=== PATIENT | male | born 1960 | race Caucasian/White ===

== ENCOUNTER 2020-11-04 07:59 | Outpatient (CLI) | payer OTHER, SELFPAY ==
--- NOTE | 2020-11-04 08:11 | XR_ITS ---
WS: [id number] LEFT SHOULDER: 3 VIEW(S) TECHNIQUE: Internal and external rotation with Y view. HISTORY: CHRONIC PAIN IN LEFT SHOULDER COMPARISON: None available. No fracture or dislocation or soft tissue abnormality. Mild AC joint narrowing and hypertrophy. Very mild irregularity along the surface of the glenoid. XR/XR shoulder LT min 2V* [id number] IMPRESSION: Mild AC joint and glenohumeral joint osteoarthritis.
--- NOTE | 2020-11-04 08:11 | XR_ITS ---
WS: [id number] Cervical spine, 5 views with obliques, 11/04/2020 Clinical Data: CERVICAL DISC DEGENERATION,CERVICOTHORACIC REGION Comparison: None. Findings: No compression fractures are seen. There is degenerative disc narrowing at C5-C6 and C6-C7. There is anterior osteophyte formation at C5, C6 and C7. There is neuroforaminal narrowing at C5-C6 and C6-C7 bilaterally. There is no prevertebral soft tissue swelling. The odontoid is unremarkable. T he soft tissues of the neck and the lung apices are normal. XR/XR cervical spine 4-5V [id number] Impression: 1. Degenerative disc narrowing at C5-C6 and C6-C7. 2. Anterior osteophyte formation at C5, C6 and C7. 3. Neural foraminal narrowing at C5-C6 and C6-C7.
== END 2020-11-04 08:00 | disposition home or self-care (01) ==
LOC: RAD 08:06
PROVIDERS: PCP Family Medicine; Visit Provider Nurse Practitioner
DX: M50.33 Other cervical disc degeneration, cervicothoracic region (principal); M25.512 Pain in left shoulder; R20.2 Paresthesia of skin; M89.411 Other hypertrophic osteoarthropathy, right shoulder; M19.012 Primary osteoarthritis, left shoulder; M25.78 Osteophyte, vertebrae
CPT/HCPCS: 72050; 73030

== ENCOUNTER → 2020-12-05 08:11 | Outpatient (BNVA) | payer OTHER, SELFPAY | PROVIDERS: PCP Nurse Practitioner; Referring Provider Nurse Practitioner; Visit Provider Anesthesiology Pain Medicine | DX: G89.29 Other chronic pain (principal); M54.12 Radiculopathy, cervical region; M50.90 Cervical disc disorder, unspecified, unspecified cervical region; Z87.891 Personal history of nicotine dependence | CPT/HCPCS: 99204 ==

== ENCOUNTER 2020-12-30 11:17 | Outpatient (CLI) | payer OTHER, SELFPAY ==
--- NOTE | 2020-12-30 11:45 | MR_ITS ---
WS: [id number] MRI CERVICAL SPINE NONCONTRAST HISTORY: M54.12 - Radiculopathy, cervical region COMPARISON: None available. Technique: Multiplanar, multisequence noncontrast imaging of the cervical spine. Normal cervical alignment. Less than 2 mm retrolisthesis of C3. Disc bulging and small osteophytes C3 -4 to C6-7.. Mild disc space narrowing and disc desiccation, most significant at C5-6 and C6-7. Signal within the cervical cord is normal. Visualized posterior fossa is unremarkable. Craniocervical junction, C1 and C2 relationship, odontoid process and soft tissues are normal. C2-C3: Normal. C3-C4: Mild annular disc bulging and osteophytic ridging. Near osteophyte contact on the ventral thec al sac. Mild central and bilateral foraminal stenosis predominantly due to osteophyte disease. Only m ild facet joint arthritis. C4-C5: Mild annular disc bulging and osteophytic ridging. Mild central stenosis and bilateral foramin al stenosis. Slightly greater narrowing on the RIGHT. Mild/moderate bilateral facet joint arthritis. C5-C6: Diffuse moderate annular disc bulging and osteophytic ridging. Near complete effacement of CSF . Moderate central and RIGHT foraminal stenosis. Mild LEFT foraminal stenosis. Larger disc osteophyte extends into the RIGHT foramen causing the more significant foraminal stenosis. Moderate bilateral f acet joint arthritis. C6-C7: Diffuse annular disc bulging and osteophytic ridging. Moderate bilateral foraminal stenosis an d mild central stenosis. Mild bilateral facet joint arthritis. C7-T1: Small central disc protrusion. No stenosis. Paraspinal soft tissue are normal. MR/MR cervical spin wo con* [id number] IMPRESSION: 1. Multilevel facet joint arthritis with disc and osteophyte disease. Most sig nificant facet arthritis at C4-5 and C5-6. 2. Moderate bilateral foraminal stenosis at C6-7 and mild central stenosis due to disc osteophyte disease. 3. Moderate central and RIGHT foraminal stenosis at C5-6 due to disc and osteo phyte disease. 4. Mild central and bilateral foraminal stenosis at C3-4 and C4-5.
== END 2020-12-30 11:18 | disposition home or self-care (01) ==
PROVIDERS: PCP Nurse Practitioner; Visit Provider Anesthesiology Pain Medicine
DX: M54.12 Radiculopathy, cervical region (principal); M48.02 Spinal stenosis, cervical region; M25.78 Osteophyte, vertebrae
CPT/HCPCS: 72141

== ENCOUNTER → 2021-01-06 11:04 | Outpatient (BNVA) | payer OTHER, SELFPAY | PROVIDERS: PCP Nurse Practitioner; Visit Provider Anesthesiology Pain Medicine | DX: M54.12 Radiculopathy, cervical region (principal); M47.812 Spondylosis without myelopathy or radiculopathy, cervical region; M50.90 Cervical disc disorder, unspecified, unspecified cervical region; M79.602 Pain in left arm; M48.02 Spinal stenosis, cervical region | CPT/HCPCS: 99214 ==

== ENCOUNTER 2021-12-27 08:41 | Outpatient (CLI) | payer OTHER, SELFPAY ==
--- NOTE | 2021-12-27 08:58 | XR_ITS ---
WS: [id number] Thoracic spine, AP and lateral views, 12/27/2021 Clinical Data: PAIN IN THORACIC SPINE Comparison: None. Findings: No compression fractures are seen. The disc heights are normal. Osteoarthritic spurring of all the vertebral bodies is seen. The paravertebral regions are normal. Th ere is a minimal dextroscoliosis of the upper thoracic spine. XR/XR thoracic spine 2V [id number] Impression: Moderate osteoarthritis and a mild dextroscoliosis of the thoracic spine.
== END 2021-12-27 08:42 | disposition home or self-care (01) ==
PROVIDERS: PCP Nurse Practitioner; Visit Provider Nurse Practitioner Family
DX: M54.6 Pain in thoracic spine (principal); M47.814 Spondylosis without myelopathy or radiculopathy, thoracic region; M41.84 Other forms of scoliosis, thoracic region
CPT/HCPCS: 72070

== ENCOUNTER → 2023-09-17 13:52 | Outpatient (BNVA) | payer MEDICARE, SELFPAY | PROVIDERS: PCP Nurse Practitioner; Visit Provider Surgery | DX: K46.9 Unspecified abdominal hernia without obstruction or gangrene (principal) | CPT/HCPCS: 99204 ==

== ENCOUNTER 2023-10-07 05:49 | Day surgery (SDC) | payer MEDICARE, SELFPAY ==
[2023-10-07] VITALS (12 sets, daily range): BP systolic 142–184; BP diastolic 99–121; PULSE 76–90; RESP 8–20; TEMP 36.5–37; O2SAT 90–99
--- NOTE | 2023-10-07 06:12 | W.PM.OPSUD ---
Surgery/Procedure H&P Update DATE OF PROCEDURE: October 07, 2023 DATE H&P PERFORMED: 09/17/23 H&P UPDATE INFORMATION: I have reviewed H&P completed within last 30 days, I have examined patient prior to procedure, No changes to prior documentation and H&P is in [facility] on date indicated PLANNED PROCEDURE: Operation Date: 10/07/23 07:00 Proposed Procedures p Laparoscopic Inguinal Hernia Repair w/Mesh [id number], K46.9(Right) - Jesus Tyler MD
[2023-10-07] MEDS: sodium chloride 0.9% 1,000 ML 30 ML IV (06:39)
--- NOTE | 2023-10-07 06:44 | P.ANESASSM_ITS ---
Pre-Anesthetic Assessment Height/Weight: Height 1.91 m Weight 95.254 kg Temp Pulse Resp BP Pulse Ox O2 Del Method 97.7 F 84 18 142/101 96 Room Air 10/07/23 06:08 10/07/23 06:08 10/07/23 06:08 10/07/23 06:08 10/07/23 06:08 10/07/23 06:08 Operation Date: 10/07/23 07:00 Proposed Procedures p Laparoscopic Inguinal Hernia Repair w/Mesh 85015, K46.9(Right) - Jesus Tyler MD Last intake: Intake Last Liquid Date 10/06/23 Last Liquid Time 21:30 Last Solid Date 10/06/23 Last Solid Time 20:00 Social No tobacco Exam alert, oriented x 3, clear to auscultation bilaterally and regular rate & rhythm Airway Submandibular: within normal limits Cervical ROM: within normal limits Mallampati: Class I Pulmonary None reported CV/HEM Coronary Artery Disease GI None reported Anesthetic Plan ASA status: 2 Anesthesia: General Medications/Allergies Home Medications Medication Instructions Recorded Confirmed Last Taken Type amlodipine 5 mg tablet 5 mg PO DAILY 08/03/19 10/07/23 10/07/23 History meloxicam 15 mg tablet 15 mg PO DAILY 08/03/19 10/04/23 10/04/23 History cyclobenzaprine 5 mg tablet 5 mg PO TID PRN muscle spasm #90 01/09/21 10/07/23 10/07/23 Rx tabs tramadol 50 mg tablet 50 mg PO Q6H PRN Pain 01/10/22 10/07/23 Unknown History ezetimibe 10 mg tablet 10 mg PO ONCE 09/17/23 10/07/23 10/06/23 History losartan 50 mg tablet 50 mg PO ONCE 09/17/23 10/07/23 10/06/23 History acetaminophen 650 mg 650 mg PO Q12H 10/04/23 10/07/23 10/07/23 History tablet,extended release multivitamin 1 tab PO DAILY 10/04/23 10/07/23 10/06/23 History Allergies Allergy/AdvReac Type Severity Reaction Status Date / Time Hagqrmj-FOA-BzE Reductase Allergy Unknown Unknown Verified 10/04/23 12:15 Inhibitor [Idrbgwk-Rxc-Xjd Reductase Inhibitor] lisinopril Allergy Cough Verified 09/17/23 14:06 Current Medications Generic Name Dose Route Start Last Admin Trade Name Freq PRN Reason Stop Dose Admin Sodium Chloride 1,000 mls @ 30 mls/hr 10/07/23 06:00 10/07/23 06:39 Sodium Chloride 0.9% IV 10/08/23 05:59 30 mls/hr .Q24H JAKE Administration PFSH Anesthesia Medical History ASHD (arteriosclerotic heart disease) HTN (hypertension) Hyperlipidemia Surgical History S/P PTCA (percutaneous transluminal coronary angioplasty) Family History Father Cancer CAD (coronary artery disease) Sister Hypertension Social History Smoking and tobacco/nicotine status: former use of tobacco/nicotine Household members: spouse Marital status: service: Yes branch: [employer] Data Anesthesia Cardiac Studies: No Data to Display
[2023-10-07] MEDS: ceFAZolin 2,000 MG in sodium chloride 0.9% (plus) 50 ML 100 MG IV (07:01)
[2023-10-07] MEDS: lidocaine-epi 1% PF 1:200,000 30 mL SDV INJECTION (07:34)
[2023-10-07] MEDS: BUPivacaine 0.25% INJ 30 mL INJECTION (07:34)
--- NOTE | 2023-10-07 08:57 | P.OP_ITS ---
Operative Report Date of procedure: October 07, 2023 Pre-op diagnosis: Right inguinal hernia Post-op diagnosis: Indirect right inguinal hernia Post-op findings: There was a large indirect right inguinal hernia, significant scarring of the sac to the cord structures. Procedure done: Laparoscopic repair of right inguinal hernia with mesh Implants: Extra-large Bard 3D max mesh Specimens removed/disposition: None Surgeon: Jesus Tyler MD Intelligence Manager: RAYMOND OR Staff Estimated blood loss: 5 Complications: none Brief History: 63-year-old male who presents to my office with a right inguinal hernia. After discussion of all risk and benefits as documented in my preop note we decided to proceed with a laparoscopic possible open right inguinal hernia repair with mesh Procedure: Patient was brought into the OR, he was placed in a supine position. General anesthesia was given. A Hoang catheter was placed. the abdomen was prepped and draped in the usual sterile fashion. A timeout was conducted. An infraumbilical incision measuring 1.5 cm was made and deepened to the anterior abdominal wall fascia with electrocautery. The right rectus sheath was then opened and the muscle retracted laterally exposing the retrorectus space. A dissecting balloon was then inserted into the retrorectus space and carefully advanced to the level of the pubic bone. Under direct visualization the balloon was inflated with very good expansion of the preperitoneal space. I then remove the balloon and replace it with a 12 mm balloon trocar. Additional 5 mm trocars were then placed under direct visualization in the suprapubic and infraumbilical position. I then proceeded to complete the dissection of the preperitoneal space by exposing the pubic arch and the symphysis pubis, I evaluated the femoral space and noted that no evidence of hernia was seen at this place. I then proceeded with lateral dissection of the space of borgoss, once lateral di ssection was completed I proceeded to dissect the cord structures and hernia sac. A large hernia sac was noted and was adhered to the cord structures. With careful blunt dissection I was able to release the cord structures from the sac and eventually I was able to reduce the whole sac into the preperitoneal space. Critical view of safety of the myopectineal orifice was achieved. Hemostasis was verified. I then placed the extra-large 3D max mesh on the preperitoneal space and fixated to the pubic bone at the level of the symphysis. The preperitoneal space was desufflated reinsufflated to verify adequate mesh position. After position was verified the space was then desufflated under direct visualization all trocars were removed. The fascia of the anterior rectus sheath was then closed with #0 Vicryl. Local anesthesia was infiltrated on all the ports. I then proceeded to close the wound in layers using #3-0 Vicryl for the subcutaneous tissue and #4 Monocryl for the skin. Dermabond was applied. At the end of the procedure all counts were correct, the patient tolerated well the procedure and was transferred to the PACU in stable condition. Hoang catheter was removed before the patient wake up.
[2023-10-07] MEDS: ondansetron 2 mg/ML SDV 2 mL 4 MG IVP (10:07)
[2023-10-07] MEDS: oxyCODONE 5 mg IR Tab/Cap PO (10:45)
--- NOTE | 2023-10-07 13:38 | ANE.PACU2 ---
Inpatient post-anesthesia follow up: Vital signs: Temperature 98.6 F Pulse Rate 79 Respiratory Rate 16 Blood Pressure 152/101 Pulse Oximetry 90 Oxygen Delivery Me thod Room Air Oxygen Flow Rate 6 Fraction of Inspir ed Oxygen Hydration adequate: Yes Nausea and vomiting: No Pain level: Other Pain level: controlled Mental status: Baseline Additional Comments: no apparent anesthetic complications noted
== END 2023-10-07 11:09 | disposition home or self-care (01) ==
PROVIDERS: PCP Nurse Practitioner Family; Visit Provider Surgery
PROC: (CPT 49650; principal; 2023-10-07 07:00)
DX: K40.90 Unilateral inguinal hernia, without obstruction or gangrene, not specified as recurrent (principal)
CPT/HCPCS: 49650; 51702; C1781; J0330; J0690; J1100; J1170; J2405; J2704; J2710; J3010; J3490; J7030

== ENCOUNTER → 2023-10-23 08:25 | Outpatient (BNVA) | payer MEDICARE, SELFPAY | PROVIDERS: PCP Nurse Practitioner Family; Visit Provider Surgery | DX: Z98.890 Other specified postprocedural states (principal); Z87.19 Personal history of other diseases of the digestive system | CPT/HCPCS: 99024 ==

== ENCOUNTER 2024-11-11 18:37 | Inpatient (IN) | payer MEDICARE, SELFPAY ==
--- OUTSIDE RECORDS SUMMARY | 2024-11-11 15:40 | XMS_ITS | Encounter Summary ---
Author Organization [employer] Address [address] [place] [address] Care Team Providers Care Seam Steamer Name Role Phone Amy Cisneros Zandra JULIO Primary Care Provider [phone] Reason for Referral * Eval and Treat (Routine) - Open Specialty Diagnoses / Procedures Referred By Kailyn do Referred To Contact Diagnoses History of coronary artery stent placement Benign hypertension Chest pain, unspecified type Procedures [place] OFFICE/OUTPATIENT ESTABLISHED MOD MDM 30 MIN [place] OFFICE/OUTPATIENT NEW MODERATE MDM 45 MINUTES Kiana Miller FNP [address] [place] [address] Phone: tel: fax: Referral ID Status Reason Start Date Expiration Date Visits Re quested Visits Authorized [id number] Open 11/11/2024 11/11/2025 1 1 * Nuclear Medicine (Routine) - Authorized Specialty Diagnoses / Procedures Referred By Kailyn do Referred To Contact Diagnoses History of coronary artery stent placement Benign hypertension Chest pain, unspecified type Shortness of breath Procedures NM PHARMACOLOGICAL STRESS TEST NM PHARMACOLOGICAL STRESS TEST Kiana Miller FNP [address] [place] [address] Phone: tel: fax: Referral ID Status Reason Start Date Expiration Date V isits Requested Visits Authorized [id number] Authorized 11/11/2024 12/12/2025 1 1 * Nuclear Medicine (Routine) - Pending Review Specialty Diagnoses / Procedures Referred By Kailyn do Referred To Contact Diagnoses History of coronary artery stent placement Benign hypertension Chest pain, unspecified type Shortness of breath Procedures NM MYOCARD PERF IMAG SPECT MULT NM MYOCARD PERF IMAG SPECT MULT Kiana Miller FNP [address] [place] [address] Phone: tel: fax: Referral ID Status Reason Start Date Expiration Date V isits Requested Visits Authorized [id number] Pending Review 11/11/2024 12/12/2025 1 1 Reason for Visit * Reason Comments Hypertension Hypertension Encounter Details Date Type Department Care Team ([facility] st Contact Info) Description 11/11/2024 3:40 PM CDT Office Visit [facility] [address] [place] [address] Kiana Miller FNP [address] [place] [address] History of coronary artery stent placement (Primary Dx); Benign hypertension; Chest pain, unspecified type; Shortness of breath Social History Tobacco Use Types Packs/Day Years Used Date Smoking Tobacco: Former Smokeless Tobacco: Never Alcohol Use Standard Drinks/Week Comments Not Currently 0 (1 standard drink = 0.6 oz pur e alcohol) Sex and Gender Information Value Date Recorded Sex Assigned at Not on file 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 Gender Identity Not on file Sexual Orientation Not on file documented as of this encounter Last Filed Vital Signs Vital Sign Reading Time Taken Comments Blood Pressure 168/90 11/11/2024 3:54 PM CDT Pulse 93 11/11/2024 3:52 PM CDT Temperature 36.9 C (98.4 F) 11/11/2024 3:52 PM CDT Respiratory Rate 17 11/11/2024 3:52 PM CDT Oxygen Saturation 95% 11/11/2024 3:52 PM CDT Inhaled Oxygen Concentration - - Weight 94.8 kg (209 lb) 11/11/2024 3:52 PM CDT Height 188 cm (6' 2 ) 11/11/2024 3:52 PM CDT Body Mass Index 26.83 11/11/2024 3:52 PM CDT documented in this encounter Progress Notes * Kiana Miller, MATRIX BATH OPERATOR - 11/11/2024 3:58 PM CDTAssociated Order(s): EKG 12-LEAD Chief Complaint Patient presents with Hypertension Hypertension Patient Active Problem List Diagnosis Code Chronic neck pain M54.2, G89.29 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 The chest pain radiates across the chest and back, accompanied by shoulder discomfort, shortness ofbreath, and flushing. There is no arm numbness or heart attack symptoms. The patient experiences slight breathlessness and fogginess. He maintains an active lifestyle with regular treadmill use and does not feel fatigued after short walks. The patient has been under significant stress recently, including the of his [id number], but he does not believe it contributes to his symptoms. He reports good sleep quality and takes afternoon naps. There has been no recent long-distance travel, falls, injuries, or twisting movements. He had a similar severe back pain episode nine years ago, which required monthly chiropractic visits;current visits are less frequent. He has a history of anxiety, which has been stable for nine years. The patient had a stent placement in December 2015 and a positive stress test in December 2016 followedby a normal stress test. 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 His blood pressure has been consistently high, with a recent reading of 174/102. He is on two antihypertensive medications. He reports no abdominal pain or acid reflux. Recent diarrhea was resolved with Imodium. Past Surgical History: Coronary artery stent placement in December 2015. 10 point review of systems is otherwise negative except as mentioned above. No past medical history on file. Current Outpatient Medications Medication Instructions acetaminophen (TYLENOL) 650 mg, TWO TIMES DAILY amLODIPine (NORVASC) 5 mg, Oral, DAILY cyclobenzaprine (FLEXERIL) 5 mg, Oral, THREE TIMES DAILY PRN, for muscle spasms ezetimibe (ZETIA) 10 mg, Oral, DAILY losartan (COZAAR) 50 mg, Oral, DAILY meloxicam (MOBIC) 15 mg, Oral, DAILY traMADol (ULTRAM) 50 mg, Oral, EVERY 8 HOURS PRN No past surgical history on file. Past social, family, and medical history reviewed. BP (!) 168/90 Pulse 93 Temp 98.4 ??F (36.9 ??C) Resp 17 Ht 6' 2 (1.88 m) Wt 94.8 kg (209lb) SpO2 95% BMI 26.83 kg/m?? Physical Exam The respiratory examination revealed clear auscultation with no wheezing, rales, or rhonchi. The cardiovascular examination showed a regular rate and rhythm with no murmurs, rubs, or gallops. Physical Exam Constitutional: General: He is not in acute distress. Appearance: Normal appearance. He is not ill-appearing, toxic-appearing or diaphoretic. HENT: Head: Normocephalic. Right Ear: External ear normal. Left Ear: External ear normal. Nose: Nose normal. Eyes: Conjunctiva/sclera: Conjunctivae normal. Cardiovascular: Rate and Rhythm: Normal rate and regular rhythm. Pulses: Normal pulses. Heart sounds: Normal heart sounds. No murmur heard. Pulmonary: Effort: Pulmonary effort is normal. No respiratory distress. Breath sounds: Normal breath sounds. Abdominal: Tenderness: There is no abdominal tenderness. Musculoskeletal: Right lower leg: No edema. Left lower leg: No edema. Skin: General: Skin is warm and dry. Neurological: Mental Status: He is alert and oriented to person, place, and time. Psychiatric: Mood and Affect: Mood normal. Behavior: Behavior normal. EKG 12-LEAD Date/Time: 11/11/2024 3:40 PM Performed by: Kiana Miller FNP Authorized by: Kiana Miller FNP Comparison: not compared with previous ECG Previous ECG: no previous ECG available Rhythm: sinus rhythm and bundle branch block Rate: normal QRS axis: normal Conduction: right bundle branch block ST Segments: ST segments normal T Waves: T waves normal Other: no other findings Clinical impression: abnormal ECG ICD-10-CM ICD-9-CM 1. History of coronary artery stent placement Z95.5 V45.82 EKG 12 LEAD UNIT PERFORMED CBC WITH DIFFERENTIAL COMPREHENSIVE METABOLIC PANEL D-DIMER XR CHEST PA AND LATERAL 2 VW TROPONIN NM MYOCARD PERF IMAG SPECT MULT NM PHARMACOLOGICAL STRESS TEST AMB REFERRAL TO CARDIOLOGY CANCELED: NM MYOCARD PERF IMAG SPECT MULT CANCELED: NM PHARMACOLOGICAL STRESS TEST 2. Benign hypertension I10 401.1 EKG 12 LEAD UNIT PERFORMED CBC WITH DIFFERENTIAL COMPREHENSIVE METABOLIC PANEL D-DIMER XR CHEST PA AND LATERAL 2 VW TROPONIN NM MYOCARD PERF IMAG SPECT MULT NM PHARMACOLOGICAL STRESS TEST AMB REFERRAL TO CARDIOLOGY CANCELED: NM MYOCARD PERF IMAG SPECT MULT CANCELED: NM PHARMACOLOGICAL STRESS TEST 3. Chest pain, unspecified type R07.9 786.50 EKG 12 LEAD UNIT PERFORMED CBC WITH DIFFERENTIAL COMPREHENSIVE METABOLIC PANEL LIPASE D-DIMER XR CHEST PA AND LATERAL 2 VW TROPONIN NM MYOCARD PERF IMAG SPECT MULT NM PHARMACOLOGICAL STRESS TEST AMB REFERRAL TO CARDIOLOGY CANCELED: NM MYOCARD PERF IMAG SPECT MULT CANCELED: NM PHARMACOLOGICAL STRESS TEST 4. Shortness of breath R06.02 786.05 D-DIMER XR CHEST PA AND LATERAL 2 VW TROPONIN NM MYOCARD PERF IMAG SPECT MULT NM PHARMACOLOGICAL STRESS TEST CANCELED: NM MYOCARD PERF IMAG SPECT MULT CANCELED: NM PHARMACOLOGICAL STRESS TEST Assessment & Plan Chest pain: - History of stent placement in 12/2015 - Radiates to back, trouble breathing, severe pain episodes - Normal EKG and 6 minute oxygen walk test; oxygen levels stable in the mid 90s during walking - Differential: pulmonary embolism, unstable angina, esophageal spasm, gallbladder issue, anxiety - Cardiac stress test to be scheduled in [place] and refer patient back to cardiology at [facility] in [facility] - Advise ER visit if symptoms persist or worsen. Patient verbalized understanding - At this time patient is not in acute physical distress. Ordered stat labs and chest x-ray at [facility]. Patient will head to the hospital when he leaves this clinic SIRI Pineda The author of this note, patient (or authorized field representatives director), and all other persons present consent to the audio recording of this visit for charting documentation purposes. This note was automatically generated, edited by a Quality Bun Panner, and finalized by SAAD Meier. documented in this encounter Plan of Treatment Upcoming Encounters Date Type Department Care Team (Late st Contact Info) Description 09/08/2025 8:00 AM CDT Office Visit [facility] [address] [place] [id number] Kiana Miller Jason, SAAD [address] [place] [address] Scheduled Orders Name Type Priority Associated Diagnoses Order Schedule EKG 12 LEAD UNIT PERFORMED ECG Routine History of coronary artery stent placement Benign hypertension Chest pain, unspecified type 1 Occurrences starting 11/11/2024 until 11/11/2025 NM MYOCARD PERF IMAG SPECT MULT Electrophysiology Routine History of coronary artery stent placement Benign hypertension Chest pain, unspecified type Shortness of breath 1 Occurrences starting 11/11/2024 until 11/11/2025 NM PHARMACOLOGICAL STRESS TEST Electrophysiology Routine History of coronary artery stent placement Benign hypertension Chest pain, unspecified type Shortness of breath 1 Occurrences starting 11/11/2024 until 11/11/2025 Scheduled Referrals Name Type Priority Associated Diagnoses Orde r Schedule AMB REFERRAL TO CARDIOLOGY Outpatient Referral Routine History of coronary artery stent placement Benign hypertension Chest pain, unspecified type Ordered: 11/11/2024 documented as of this encounter Procedures Procedure Name Priority Date/Time Associated Diagnosis Comments NJ ECG ROUTINE ECG W/LEAST 12 LDS W/I&R Routine 11/11/2024 3:40 PM CDT documented in this encounter Results * (ABNORMAL) TROPONIN (11/11/2024 5:25 PM CDT) TROPONIN T, 5TH GEN 285(HH) <=15 ng/L 11/11/2024 6:00 PM CDT [facility] Blood BLOOD SPECIMEN / Unknown Venipuncture / Unknown 11/11/2024 5:25 PM CDT 11/11/2024 5:27 PM CDT Narrative [facility] - 11/11/2024 6:00 PM CDT Troponin elevated. Kiana Gomez [facility] CHEMISTRY ORDERABLES Final Result Performing Organization Address [facility]/ZIP Co de Phone Number [facility] CLIA # [id number] [address] [place] [id number] * D-DIMER (11/11/2024 5:25 PM CDT) D-DIMER QUANT <0.15 <0.50 ug/mL FEU 11/11/2024 5:56 PM CDT [facility] Blood BLOOD SPECIMEN / Unknown Venipuncture / Unknown 11/11/2024 5:25 PM CDT 11/11/2024 5:27 PM CDT [facility] - 11/11/2024 5:56 PM CDT D-Dimer assay cutoff value for exclusion of DVT and/or PE is <0.50 ug/mL FEU. As D-Dimer levels increase naturally with age, age stratification for patients over 50 is potentially more appropriate in determining whether a patient should undergo further evaluation for DVT and/or PE than a general cutoff of 0.50 ug/mL FEU. Clinical consideration is recommended. Age Stratified Cutoff Values: 50-60 years: 0.50-0.60 ug/mL FEU 61-70 years: 0.61-0.70 ug/mL FEU 71-80 years: 0.71-0.80 ug/mL FEU Kiana Gomez [facility] HEMATOLOGY ORDERABLES Lolly l Result [facility] CLIA # [id number] [address] [place] [address]31 * LIPASE (11/11/2024 5:25 PM CDT) LIPASE 47 13 - 60 U/L 11/11/2024 5:56 PM CDT [facility] Blood BLOOD SPECIMEN / Unknown Venipuncture / Unknown 11/11/2024 5:25 PM CDT 11/11/2024 5:27 PM CDT Kiana Miller MATRIX BATH OPERATOR CHEMISTRY ORDERABLES Final Result [facility] CLIA # [id number] [address] [place] [id number] * COMPREHENSIVE METABOLIC PANEL (11/11/2024 5:25 PM CDT) SODIUM 141 136 - 145 mmol/L 11/11/2024 5:56 PM CDT [facility] POTASSIUM 4.3 3.5 - 5.1 mmol/L 11/11/2024 5:56 PM [facility] CHLORIDE 103 98 - 107 mmol/L 11/11/2024 5:56 PM [facility] CO2 27 22 - 29 mmol/L 11/11/2024 5:56 PM [facility] CALCIUM 9.5 8.8 - 10.2 mg/dL 11/11/2024 5:56 PM [facility] BUN 15 8 - 23 mg/dL 11/11/2024 5:56 PM [facility] CREATININE 0.96 0.67 - 1.17 mg/dL 11/11/2024 5:56 PM [facility] GLUCOSE 99 74 - 99 mg/dL 11/11/2024 5:56 PM [facility] TOTAL PROTEIN 6.9 6.6 - 8.7 g/dL 11/11/2024 5:56 PM [facility] ALBUMIN 4.6 3.5 - 5.2 g/dL 11/11/2024 5:56 PM [facility] BILIRUBIN TOTAL 0.4 0.0 - 1.2 mg/dL 11/11/2024 5:56 PM [facility] ALKALINE PHOSPHATASE 81 40 - 129 U/L 11/11/2024 5:56 PM [facility] AST 43 0 - 50 U/L 11/11/2024 5:56 PM [facility] ALT 42 0 - 50 U/L 11/11/2024 5:56 PM [facility] GFR >60 >=60 mL/min/1.7 3 sq meter 11/11/2024 5:56 PM [facility] Comment:eGFR calculated with 2020 CKD-EPI equation. Vegetarian diet, extremely high or low muscle mass, and may affect results. Cystatin C with Glomerular Filtration Rate is a suitable alternative for these patients. ANION GAP 11 5 - 20 mmol/L 11/11/2024 5:56 PM T [facility] Blood BLOOD SPECIMEN / Unknown Venipuncture / Unknown 11/11/2024 5:25 PM CDT 11/11/2024 5:27 PM CDT Kiana Miller MATRIX BATH OPERATOR CHEMISTRY ORDERABLES Final Result [facility] CLIA # [id number] [address] [place] [id number] * (ABNORMAL) CBC WITH DIFFERENTIAL (11/11/2024 5:25 PM CDT) WBC 8.7 4.2 - 9.1 K/uL 11/11/2024 5:33 PM [facility] RBC 5.53 4.63 - 6.08 M/uL 11/11/2024 5:33 PM [facility] HEMOGLOBIN 17.1 13.7 - 17.5 g/dL 11/11/2024 5:33 PM [facility] HEMATOCRIT 48.6 40.1 - 51.0 % 11/11/2024 5:33 PM [facility] MCV 87.9 79.0 - 92.2 fL 11/11/2024 5:33 PM [facility] MCH 30.9 25.7 - 32.2 pg 11/11/2024 5:33 PM [facility] MCHC 35.2 32.3 - 36.5 g/dL 11/11/2024 5:33 PM [facility] RDW 12.4 11.0 - 14.5 % 11/11/2024 5:33 PM [facility] RDW-STDEV 40.0 36.9 - 56.9 fL 11/11/2024 5:33 PM [facility] PLATELETS 217 130 - 400 K/uL 11/11/2024 5:33 PM [facility] MPV 9.1(L) 10.0 - 14.8 fL 11/11/2024 5:33 PM [facility] NEUTROPHILS 65 34 - 68 % 11/11/2024 5:33 PM [facility] LYMPHOCYTES 25 22 - 53 % 11/11/2024 5:33 PM [facility] MONOCYTES 6 5 - 12 % 11/11/2024 5:33 PM [facility] EOSINOPHILS 3 1 - 7 % 11/11/2024 5:33 PM [facility] BASOPHILS 1 0 - 1 % 11/11/2024 5:33 PM [facility] IMMATURE GRANULOCYTES 0 % 11/11/2024 5:33 PM [facility] NEUTROPHIL ABSOLUTE 5.67(H) 1.78 - 5.38 K/uL 11/11/2024 5:33 PM [facility] LYMPHOCYTE ABSOLUTE 2.20 1.20 - 3.40 K/uL 11/11/2024 5:33 PM [facility] MONOCYTE ABSOLUTE 0.54 0.30 - 0.82 K/uL 11/11/2024 5:33 PM [facility] EOSINOPHIL ABSOLUTE 0.24 0.04 - 0.54 K/uL 11/11/2024 5:33 PM [facility] BASOPHILS ABSOLUTE 0.08 0.01 - 0.08 K/uL 11/11/2024 5:33 PM [facility] IMMATURE GRANULOCYTES ABSOLUTE 0.01 K/uL 11/11/2024 5:33 PM [facility] Blood BLOOD SPECIMEN / Unknown Venipuncture / Unknown 11/11/2024 5:25 PM CDT 11/11/2024 5:27 PM CDT Xuanbo Stone Miller MATRIX BATH OPERATOR HEMATOLOGY ORDERABLES Lolly arriaga Result [facility] # [id number] [address] [place] [address] * XR CHEST PA AND LATERAL 2 VW (11/11/2024 5:12 PM CDT) Anatomical Region Laterality Modality Chest Computed Radiogr aphy 11/11/2024 5:12 PM CDT Impressions 11/11/2024 5:39 PM CDT IMPRESSION: Please see below. Exam: XR CHEST PA AND LATERAL 2 VW Date/Time of Exam: 11/11/2024 5:12 PM Reason For Exam: See Diagnosis. Diagnosis: History of coronary artery stent placement; Benign hypertension; Chest pain, unspecified type; Shortness of breath. Findings: There are no comparisons. The lungs are adequately inflated. There is no pneumothorax. There is a round 6 mm nodular density in the left upper lobe projected over the anterior left second rib. There is a vague 5 mm nodular density over the right apex just medial to the anterior right sixth first rib. The lungs are otherwise clear. The cardiac silhouette is not enlarged. The pulmonary vessels are unremarkable. The bony thorax is grossly intact. IMPRESSION: 1. There is a round 6 mm nodular density over the left upper lobe and a vague 5 mm nodular density over the right upper lobe. These nodules are nonspecific in appearance. At a minimum, follow-up PA, lateral and apical lordotic views of the chest should be obtained in 3 months. Alternatively, a nonemergent CT scan could be performed for further evaluation. 2. Otherwise unremarkable exam. Narrative Procedure Note Jeanne Coe MD - 11/11/2024 IMPRESSION: Please see below. Exam: XR CHEST PA AND LATERAL 2 VW Date/Time of Exam: 11/11/2024 5:12 PM Reason For Exam: See Diagnosis. Diagnosis: History of coronary artery stent placement; Benign hypertension; Chest pain, unspecified type; Shortness of breath. Findings: There are no comparisons. The lungs are adequately inflated. There is no pneumothorax. There is a round 6 mm nodular density in the left upper lobe projected over the anterior left second rib. There is a vague 5 mm nodular density over the right apex just medial to the anterior right sixth first rib. The lungs are otherwise clear. The cardiac silhouette is not enlarged. The pulmonary vessels are unremarkable. The bony thorax is grossly intact. IMPRESSION: 1. There is a round 6 mm nodular density over the left upper lobe and a vague 5 mm nodular density over the right upper lobe. These nodules are nonspecific in appearance. At a minimum, follow-up PA, lateral and apical lordotic views of the chest should be obtained in 3 months. Alternatively, a nonemergent CT scan could be performed for further evaluation. 2. Otherwise unremarkable exam. Kiana Miller MATRIX BATH OPERATOR DIAGNOSTIC IMAGING ORDERAB LES Final Result documented in this encounter Visit Diagnoses Diagnosis History of coronary artery stent placement- Primary Benign hypertension Essential hypertension, benign Chest pain, unspecified type Shortness of breath History of coronary artery stent placement Benign hypertension Essential hypertension, benign Chest pain, unspecified type Shortness of breath documented in this encounter Care Teams Seam Steamer Relationship Specialty Start Date End Date Amy Cisneros DO [address] [place] [address] PCP - General Family Practice 08/28/23 documented as of this encounter
--- OUTSIDE RECORDS SUMMARY | 2024-11-11 17:00 | XMS_ITS | Encounter Summary ---
Author Organization [facility] Address [address] [place] [address] Care Team Providers Care Program Development Specialist Name Role Phone Amy Cisneros Primary Care Provider Encounter Details Date Type Department Care Team (Latest Contact Info) Description 11/11/2024 5:00 PM CDT - 11/11/2024 11:59 PM CDT Hospital Encounter [facility] Outpatient Laboratory Services [place] [address] [place] [phone] Kiana Miller, [facility] [address] [place] [phone] Arrived Discharge Disposition: Home or Self Care Social History Tobacco Use Types Packs/Day Years Used Date Smoking Tobacco: Former Smokeless Tobacco: Never Alcohol Use Standard Drinks/Week Comments Not Currently 0 (1 standard drink = 0.6 oz pur e alcohol) Sex and Gender Information Value Date Recorded Sex Assigned at Not on file 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 30 Tablet 11/06/2024 amLODIPine (NORVASC) 5 mg tabletIndications:Jack ign hypertension Take 1 Tablet (5 mg) by mouth daily. 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 for muscle spasms 270 Tablet 3 09/08/2024 ezetimibe (ZETIA) 10 mg tabletIndications:Mix ed hyperlipidemia Take 1 Tablet (10 mg) by mouth daily. 90 Tablet 3 09/08/2024 losartan (COZAAR) 50 mg tabletIndications:Jack ign hypertension Take 1 Tablet (50 mg) by mouth daily. 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 90 Tablet 3 09/08/2024 acetaminophen (TYLENOL) 325 mg tablet Take 650 mg by mouth 2 times daily. documented as of this encounter Plan of Treatment Upcoming Encounters Date Type Department Care Team (Late st Contact Info) Description 09/08/2025 8:00 AM CDT Office Visit [facility] [address] [place] [address] Kiana Miller, [facility] [address] [place] [address] documented as of this encounter Procedures Procedure Name Priority Date/Time Associated Diagnosis Comments CBC WITH DIFFERENTIAL Stat 11/11/2024 5:25 PM CDT History of coronary artery stent placement Benign hypertension Chest pain, unspecified type D-DIMER Stat 11/11/2024 5:25 PM CDT History of coronary artery stent placement Benign hypertension Chest pain, unspecified type Shortness of breath TROPONIN Stat 11/11/2024 5:25 PM CDT History of coronary artery stent placement Benign hypertension Chest pain, unspecified type Shortness of breath LIPASE Stat 11/11/2024 5:25 PM CDT Chest pain, unspecified type COMPREHENSIVE METABOLIC PANEL Stat 11/11/2024 5:25 PM CDT History of coronary artery stent placement Benign hypertension Chest pain, unspecified type documented in this encounter Results * (ABNORMAL) TROPONIN (11/11/2024 5:25 PM CDT) TROPONIN T, 5TH GEN 285(HH) <=15 ng/L 11/11/2024 6:00 PM CDT [facility] Blood BLOOD SPECIMEN / Unknown Venipuncture / Unknown 11/11/2024 5:25 PM CDT 11/11/2024 5:27 PM CDT [facility] - 11/11/2024 6:00 PM CDT Troponin elevated. Kiana Miller [facility] CHEMISTRY ORDERABLES Final Result Performing Organization Address City/State/[facility] Co de Phone Number [facility] CLIA # [id number] [address] [place] [phone] * D-DIMER (11/11/2024 5:25 PM CDT) [facility] D-DIMER QUANT <0.15 <0.50 ug/mL FEU 11/11/2024 5:56 PM CDT [facility] Blood BLOOD SPECIMEN / Unknown Venipuncture / Unknown 11/11/2024 5:25 PM CDT 11/11/2024 5:27 PM CDT [facility] - 11/11/2024 5:56 PM CDT D-Dimer assay [...] FEU 71-80 years: 0.71-0.80 ug/mL FEU Kiana Miller [facility] HEMATOLOGY ORDERABLES Lolly l Result [facility] CLIA # [id number] [address] [place] [phone] * LIPASE (11/11/2024 5:25 PM CDT) LIPASE 47 13 - 60 U/L 11/11/2024 5:56 PM CDT [facility] Blood BLOOD SPECIMEN / Unknown Venipuncture / Unknown 11/11/2024 5:25 PM CDT 11/11/2024 5:27 PM CDT Tanidiane Gomez Angela [facility] CHEMISTRY ORDERABLES Final Result Performing Organization Address [facility]/ZIP Co de Phone Number [facility] CLIA # [id number] [address] [place] [phone] * COMPREHENSIVE METABOLIC PANEL (11/11/2024 5:25 PM CDT) SODIUM 141 136 - 145 mmol/L 11/11/2024 5:56 PM CDT [facility] POTASSIUM 4.3 3.5 - 5.1 mmol/L 11/11/2024 5:56 PM T [facility] CHLORIDE 103 98 - 107 mmol/L 11/11/2024 5:56 PM T [facility] CO2 27 22 - 29 mmol/L 11/11/2024 5:56 PM T [facility] CALCIUM 9.5 8.8 - 10.2 mg/dL 11/11/2024 5:56 PM T [facility] BUN 15 8 - 23 mg/dL 11/11/2024 5:56 PM T [facility] CREATININE 0.96 0.67 - 1.17 mg/dL 11/11/2024 5:56 PM T [facility] GLUCOSE 99 74 - 99 mg/dL 11/11/2024 5:56 PM [facility] TOTAL PROTEIN 6.9 6.6 - 8.7 g/dL 11/11/2024 5:56 PM CDT [facility] ALBUMIN 4.6 3.5 - 5.2 g/dL 11/11/2024 5:56 PM T [facility] BILIRUBIN TOTAL 0.4 0.0 - 1.2 mg/dL 11/11/2024 5:56 PM [facility] ALKALINE PHOSPHATASE 81 40 - 129 U/L 11/11/2024 5:56 PM T [facility] AST 43 0 - 50 U/L 11/11/2024 5:56 PM T [facility] ALT 42 0 - 50 U/L 11/11/2024 5:56 PM [facility] GFR >60 >=60 mL/min/1.7 3 sq meter 11/11/2024 5:56 PM [facility] Comment:eGFR calculated with 2020 CKD-EPI equation. Vegetarian diet, extremely high or low muscle mass, and may affect results. Cystatin C with Glomerular Filtration Rate is a suitable alternative for these patients. ANION GAP 11 5 - 20 mmol/L 11/11/2024 5:56 PM [facility] Blood BLOOD SPECIMEN / Unknown Venipuncture / Unknown 11/11/2024 5:25 PM CDT 11/11/2024 5:27 PM CDT Kiana Miller CLIENT INTEGRATION MANAGER CHEMISTRY ORDERABLES Final Result [id number] [address] [place] [phone] * (ABNORMAL) CBC WITH DIFFERENTIAL (11/11/2024 5:25 PM CDT) WBC 8.7 4.2 - 9.1 K/uL 11/11/2024 5:33 PM CDT [facility] RBC 5.53 4.63 - 6.08 M/uL 11/11/2024 5:33 PM [facility] HEMOGLOBIN 17.1 13.7 - 17.5 g/dL 11/11/2024 5:33 PM [facility] HEMATOCRIT 48.6 40.1 - 51.0 % 11/11/2024 5:33 PM [facility] MCV 87.9 79.0 - 92.2 fL 11/11/2024 5:33 PM [facility] MCH 30.9 25.7 - 32.2 pg 11/11/2024 5:33 PM [facility] MCHC 35.2 32.3 - 36.5 g/dL 11/11/2024 5:33 PM [facility] RDW 12.4 11.0 - 14.5 % 11/11/2024 5:33 PM [facility] RDW-STDEV 40.0 36.9 - 56.9 fL 11/11/2024 5:33 PM [facility] PLATELETS 217 130 - 400 K/uL 11/11/2024 5:33 PM [facility] MPV 9.1(L) 10.0 - 14.8 fL 11/11/2024 5:33 PM [facility] NEUTROPHILS 65 34 - 68 % 11/11/2024 5:33 PM [facility] LYMPHOCYTES 25 22 - 53 % 11/11/2024 5:33 PM [facility] MONOCYTES 6 5 - 12 % 11/11/2024 5:33 PM [facility] EOSINOPHILS 3 1 - 7 % 11/11/2024 5:33 PM [facility] BASOPHILS 1 0 - 1 % 11/11/2024 5:33 PM [facility] IMMATURE GRANULOCYTES 0 % 11/11/2024 5:33 PM [facility] NEUTROPHIL ABSOLUTE 5.67(H) 1.78 - 5.38 K/uL 11/11/2024 5:33 PM [facility] LYMPHOCYTE ABSOLUTE 2.20 1.20 - 3.40 K/uL 11/11/2024 5:33 PM [facility] MONOCYTE ABSOLUTE 0.54 0.30 - 0.82 K/uL 11/11/2024 5:33 PM [facility] EOSINOPHIL ABSOLUTE 0.24 0.04 - 0.54 K/uL 11/11/2024 5:33 PM CDT [facility] BASOPHILS ABSOLUTE 0.08 0.01 - 0.08 K/uL 11/11/2024 5:33 PM CDT [facility] IMMATURE GRANULOCYTES ABSOLUTE 0.01 K/uL 11/11/2024 5:33 PM CDT [facility] Blood BLOOD SPECIMEN / Unknown Venipuncture / Unknown 11/11/2024 5:25 PM CDT 11/11/2024 5:27 PM CDT us Kiana Miller CLIENT INTEGRATION MANAGER HEMATOLOGY ORDERABLES Lolly arriaga Result [facility] CLIA # [id number] [address] [place] [phone] documented in this encounter Visit Diagnoses Diagnosis History of coronary artery stent placement Benign hypertension Essential hypertension, benign Chest pain, unspecified type Shortness of breath documented in this encounter Care Teams Program Development Specialist Relationship Specialty Start Date End Date Amy Cisneros DO [address] [place] [address] PCP - General Family Practice 08/28/23 documented as of this encounter
--- OUTSIDE RECORDS SUMMARY | 2024-11-11 17:02 | XMS_ITS | Encounter Summary ---
Author Organization [employer] Address [address] [place] [address] Care Team Providers Care Load Dispatcher Local Name Role Phone Amy Cisneros Primary Care Provider [phone] Encounter Details Date Type Department Care Team (Latest Contact Info) Description 11/11/2024 5:02 PM CDT - 11/11/2024 11:59 PM CDT Hospital Encounter Room 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 Otherwise unremarkable exam. Narrative Procedure Note Jeanen Coe MD - 11/11/2024 IMPRESSION: Please see [...] evaluation. 2. Otherwise unremarkable exam. Kiana Miller SCREENER AND BLENDER OPERATOR DIAGNOSTIC IMAGING ORDERAB LES Final Result documented in this encounter Visit Diagnoses Diagnosis History of coronary artery stent placement Benign hypertension Essential hypertension, benign Chest pain, unspecified type Shortness of breath documented in this encounter Care Teams Load Dispatcher Local Relationship Specialty Start Date End Date Blayne, Amy L, DO [address] [place] [phone] PCP - General Family Practice 08/28/23 documented as of this encounter
--- NOTE | 2024-11-11 18:38 | XRR_ITS ---
PROCEDURE INFORMATION: Exam: XR Chest Exam date and time: 11/11/2024 7:07 PM Age: 64 years old Clinical indication: Pain; Chest pressure; Additional info: Cp TECHNIQUE: Imaging protocol: Radiologic exam of the chest. Views: 1 view. COMPARISON: CR XR thoracic spine 2V [id number] 12/27/2021 9:04 AM FINDINGS: Lungs: Unremarkable. No consolidation. Pleural spaces: Unremarkable. No pleural effusion. No pneumothorax. Heart/Mediastinum: Unremarkable. No cardiomegaly. Bones/joints: Unremarkable. XR/XR chest 1V portable [id number] IMPRESSION: No acute findings.
[2024-11-11 18:45] VITALS: BP 165/97; PULSE 82; RESP 18; TEMP 36.9; O2SAT 98; BMI 26.8
--- NOTE | 2024-11-11 19:02 | W.ED.CHESTPA ---
HPI - Chest Pain General: Chief Complaint: Chest Pain Stated Complaint: leesa sent for elevated triponin Time Seen by Provider: 11/11/24 18:51 History of Present Illness: 64-year-old male with a history of hypertension and coronary artery disease status post stents about 9 years ago who presents emergency room with chest pain. Says has been having some pain in his back between his shoulder blades and gone to see his chiropractor and then developed some left-sided chest pain and went to see his doctor who stephen labs. His doctor called him back later today and told him to go to the emergency room because his troponin was elevated. Currently with some left lower lateral chest pain. No lower extremity swelling. No shortness of breath. No altered mental status. No focal motor deficits. No fever. No abdominal pain. No nausea or vomiting. Related Data Home Medications ?Medication ?Instructions ?Recorded ?Confirmed amlodipine 5 mg tablet 5 mg PO DAILY 08/03/19 10/23/23 ezetimibe 10 mg tablet 10 mg PO ONCE 09/17/23 10/23/23 losartan 50 mg tablet 50 mg PO ONCE 09/17/23 10/23/23 acetaminophen 650 mg 650 mg PO Q12H 10/04/23 10/23/23 tablet,extended release multivitamin 1 tab PO DAILY 10/04/23 10/23/23 Previous Rx's ?Medication ?Instructions ?Recorded cyclobenzaprine 5 mg tablet 5 mg PO TID PRN muscle spasm #90 01/09/21 tabs oxycodone 5 mg tablet 5 mg PO Q8H PRN pain #20 tabs 10/07/23 Allergies Allergy/AdvReac Type Severity Reaction Status Date / Time Cjyqvke-QZJ-KxV Reductase Allergy Unknown Unknown Verified 11/11/24 18:49 Inhibitor (Jxemlvr-Mgy-Aqh Reductase Inhibitor) lisinopril Allergy Cough Verified 11/11/24 18:49 Review of Systems Narrative: Constitutional symptoms: Negative except as documented in HPI. Skin symptoms: Negative except as documented in HPI. Eye symptoms: Negative except as documented in HPI. ENMT symptoms: Negative except as documented in HPI. Respiratory symptoms: Negative except as documented in HPI. Cardiovascular symptoms: Negative except as documented in HPI. Gastrointestinal symptoms: Negative except as documented in HPI. Genitourinary symptoms: Negative except as documented in HPI. Musculoskeletal symptoms: Negative except as documented in HPI. Neurologic symptoms: Negative except as documented in HPI. Psychiatric symptoms: Negative except as documented in HPI. Endocrine symptoms: Negative except as documented in HPI. [facility] PFSH: Medical History (Updated 11/11/24 @ 20:38 by Tayler Matos MD) ASHD (arteriosclerotic heart disease) HTN (hypertension) Hyperlipidemia Surgical History (Updated 10/23/23 @ 08:52 by Jesus Tyler MD) H/O inguinal hernia repair S/P PTCA (percutaneous transluminal coronary angioplasty) Family History Father Cancer CAD (coronary artery disease) Sister Hypertension Social History Smoking and tobacco/nicotine status: former use of tobacco/nicotine Household members: spouse Marital status: service: Yes branch: [employer] Physical Exam Narrative: EXAM NARRATIVE: General: Alert, no acute distress. Skin: Warm, dry. Head: Normocephalic, atraumatic. Neck: Supple, trachea midline. Eye: Extraocular movements are intact. Ears, nose, mouth and throat: mucosa moist. Cardiovascular: Regular, Normal peripheral perfusion. Respiratory: Lungs are clear to auscultation, respirations are non-labored, breath sounds are equal, Symmetrical chest wall expansion. Gastrointestinal: Soft, Nontender, Non distended Musculoskeletal: Normal ROM, no deformity. Neurological: Alert and oriented, No focal neurological deficit observed. Psychiatric: Cooperative, appropriate mood & affect. Course Vital Signs: Vital signs: Vital Signs Temperature 98.4 F 11/11/24 18:45 Pulse Rate 82 11/11/24 19:11 Respiratory Rate 18 11/11/24 18:45 Blood Pressure 166/113 11/11/24 19:11 Pulse Oximetry 96 11/11/24 19:11 Oxygen Delivery Me thod Room Air 11/11/24 19:11 MDM - Chest Pain Medical Decision Making Differential diagnosis for patient with chest pain includes but is not limited to and based on the above HPI, review of systems and physical exam: Pneumonia. unstable angina. angina. Acute coronary syndrome / [place]. Pulmonary embolism. Costochondritis / musculoskeletal. Pleurisy. Pericarditis. Esophageal spasm. Pancreatis. Cholecystitis. Orders placed to evaluate differential diagnosis based on the above differential, HPI and physical exam EKG: Time 1843. Rate 80. Normal sinus rhythm, No ST-T changes, no ectopy, left anterior fascicular block, right bundle branch block, This was reviewed and interpreted by myself the ER physician at 1845 Chest x-ray: No acute process. No infiltrate. No pneumothorax. This was reviewed and interpreted by myself the emergency room physician. I also reviewed the radiology report. Lab Review: Laboratory results were reviewed and interpreted by myself the emergency room physician. No leukocytosis. Mild polycythemia with a hemoglobin of 17. BUN/creatinine are normal at 14 and 0.8. Initial troponin is elevated at almost 300. I reviewed the patient's medical record. Consultation: I spoke with Dr. Jerome who is on-call for cardiology. He recommends therapeutic Lovenox. 600 Plavix. Echocardiogram. These were all ordered Reexamination: Patient says nitroglycerin improved his chest pain and his blood pressure has improved with it. Patient remained stable. No increased work of breathing. No altered mental status. No focal motor deficits. Consultation: I spoke with Dr. Adam who is on-call for the hospital service who agrees to admission. Assessment and plan: Non-STEMI Accelerated hypertension Chest pain ?Subcu Lovenox, 600 p.o. Plavix. Echocardiogram ordered -I discussed the patient with the hospitalist on-call who is admitting the patient. - Discussed findings and plan with patient. Answered any questions. - All laboratory values were reviewed and interpreted personally by myself, the ER physician - All imaging was reviewed and interpreted personally by myself, the ER physician. - Evaluation and treatment of this problem were appropriate in the emergency setting Lab Data 11/11/24 18:57 11/11/24 18:57 Radiology Impressions Chest X-Ray 11/11/24 18:38 IMPRESSION: No acute findings. Laboratory Results WBC 9.36 10^3/uL (3.29-11.43) 11/11/24 18:57 RBC 5.64 10^6/uL (3.85-5.65) 11/11/24 18:57 Hgb 17.20 g/dL (11.27-16.99) H 11/11/24 18:57 Hct 50.0 % (37-53) 11/11/24 18:57 MCV 88.7 fl (82-101) 11/11/24 18:57 MCH 30.5 pg (27-33) 11/11/24 18:57 MCHC 34.4 g/dL (30-55) 11/11/24 18:57 RDW 12.4 % (12.1-15.1) 11/11/24 18:57 Plt Count 211 10^3/cmm (157-399) 11/11/24 18:57 MPV 9.0 fL (7.4-10.4) 11/11/24 18:57 Neut % (Auto) 60.7 % 11/11/24 18:57 Lymph % (Auto) 27.9 % 11/11/24 18:57 [place] % (Auto) 7.2 % 11/11/24 18:57 Eos % (Auto) 3.1 % 11/11/24 18:57 Baso % (Auto) 0.9 % 11/11/24 18:57 Neut # (Auto) 5.69 10^3/uL (1.8-7.7) 11/11/24 18:57 Lymph # (Auto) 2.6 10^3/uL (0.8-4.8) 11/11/24 18:57 [place] # (Auto) 0.7 10^3/uL (0.2-0.9) 11/11/24 18:57 Eos # (Auto) 0.3 10^3/uL (0.0-0.8) 11/11/24 18:57 Baso # (Auto) 0.1 10^3/uL (0.0-0.1) 11/11/24 18:57 Nucleated RBC % (auto) 0 % 11/11/24 18:57 Nucleated RBCs # 0.0 /100WBC 11/11/24 18:57 PT 13.00 SECONDS (12.1-14.9) 11/11/24 18:57 INR 0.91 (0.8-1.2) 11/11/24 18:57 Sodium 139 mmol/L (136-145) 11/11/24 18:57 Potassium 4.0 mmol/L (3.5-5.1) 11/11/24 18:57 Chloride 100 mmol/L (98-107) 11/11/24 18:57 Carbon Dioxide 21 mmol/L (22-29) L 11/11/24 18:57 Anion Gap 22.0 (5-19) H 11/11/24 18:57 BUN 14 mg/dL (8-23) 11/11/24 18:57 Creatinine 0.8 mg/dL (0.7-1.2) 11/11/24 18:57 GFR Calculation 96.7 mL/min (90-130) 11/11/24 18:57 Glucose 93 mg/dL (65-115) 11/11/24 18:57 Calculated Osmolality 288 mOsm/kg (285-295) 11/11/24 18:57 Calcium 8.9 mg/dL (8.5-10.5) 11/11/24 18:57 Total Bilirubin 0.5 mg/dL (0.15-1.2) 11/11/24 18:57 AST 42 U/L (0-40) H 11/11/24 18:57 ALT 39 U/L (0-41) 11/11/24 18:57 Alkaline Phosphatase 81 U/L (40-130) 11/11/24 18:57 Troponin T Baseline 258 ng/L (0-15) H* 11/11/24 18:57 Total Protein 7.0 g/dL (6.6-8.7) 11/11/24 18:57 Albumin 4.5 g/dL (3.5-5.2) 11/11/24 18:57 Globulin 2.5 g/dL (1.3-4.6) 11/11/24 18:57 Lipase 46 U/L (13-60) 11/11/24 18:57 All radiology interpretation(s) finalized by discharge Discharge Plan Discharge Patient Disposition: Admitted As Inpatient Clinical Impression: Non-ST elevated myocardial infarction, Accelerated hypertension, Chest pain Condition: Stable Coding Level of Care Code ED Storage Manager for Kieran Perdomo
[2024-11-11 19:08] LABS: Basophils # 0.1 10^3/uL (0.0-0.1); Basophils % 0.9 %; Eosinophils # 0.3 10^3/uL (0.0-0.8); Eosinophils % 3.1 %; Lymphocytes # 2.6 10^3/uL (0.8-4.8); Lymphocytes % 27.9 %; Mean Corpuscular HGB Conc 34.4 g/dL (30-55); Mean Corpuscular Hemoglobin 30.5 pg (27-33); Mean Corpuscular Volume 88.7 fl (82-101); Monocytes # 0.7 10^3/uL (0.2-0.9); Monocytes % 7.2 %; Neutrophils # 5.69 10^3/uL (1.8-7.7); Neutrophils % 60.7 %; Nucleated Red Blood Cells % 0 %; Platelet Count 211 10^3/cmm (157-399); Red Blood Count 5.64 10^6/uL (3.85-5.65); Red Cell Distribution Width 12.4 % (12.1-15.1); White Blood Count 9.36 10^3/uL (3.29-11.43)
[2024-11-11 19:11] VITALS: BP 166/113; PULSE 82; O2SAT 96
[2024-11-11 19:19] LABS: INR 0.91 (0.8-1.2)
--- NOTE | 2024-11-11 19:29 | ECG_ITS ---
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 Measurements Intervals [place] Rate: 84 P: 47 AR: 174 QRS: -63 QRSD: 141 T: 24 QT: 405 QTc: 481 Interpretive Statements Normal Sinus Rhythm with artifact RIGHT BUNDLE BRANCH BLOCK [120+ ms QRS DURATION, UPRIGHT V1, 40+ ms S IN I/aVL/V4/V5/V6] LEFT ANTERIOR FASCICULAR BLOCK [QRS AXIS <= -45, QR IN I, RS IN II] MODERATE VOLTAGE CRITERIA FOR LVH, CONSIDER NORMAL VARIANT [MEETS CRITERIA IN ONE OF: R(aVL), S(V1), R(V5), R(V5/V6)+S(V1)] Compared to ECG 01/13/2016 05:20:20 Ventricular premature complex(es) now present Right bundle-branch block now present Left anterior fascicular block now present Electronically Signed On 11-12-2024 05:59:35 CDT by Philip Jerome M.D. [email or web address]
[2024-11-11] MEDS: aspirin 81 mg Chew Tablet 324 MG PO (19:40)
[2024-11-11] MEDS: nitroglycerin 0.4 mg sublingual Tablet SUBLINGUAL (19:41)
[2024-11-11 19:57] LABS: Alanine Aminotransferase 39 U/L (0-41); Albumin Level 4.5 g/dL (3.5-5.2); Alkaline Phosphatase 81 U/L (40-130); Blood Urea Nitrogen 14 mg/dL (8-23); Calcium 8.9 mg/dL (8.5-10.5); Carbon Dioxide 21 mmol/L (22-29); Chloride 100 mmol/L (98-107); Creatinine Clr Calc Pharmacy 112.0797; Globulin 2.5 g/dL (1.3-4.6); Glomerular Filtration Rate 96.7 mL/min (90-130); Glucose 93 mg/dL (65-115); Lipase 46 U/L (13-60); Osmolality Calculated 288 mOsm/kg (285-295); Sodium 139 mmol/L (136-145); Total Bilirubin 0.5 mg/dL (0.15-1.2)
[2024-11-11 20:12] LABS: Aspartate Amino Transferase 42 U/L (0-40)
[2024-11-11 20:13] LABS: Troponin(5th) Baseline 258 ng/L (0-15)
--- NOTE | 2024-11-11 20:23 | USCV_ITS ---
Can Astorga Age: 64 Gender: M : 1960 Exam Date: 11/11/2024 20:35 Ordering Phys: Tayler Matos MD Technologist: GONZALEZ Exam Location: [facility] Indication: nonstemi, history of CAD s/p cardiac stenting 2016, HTN BP: 166 / 113 HR: 68 Rhythm: Sinus Technical Quality: Adequate MEASUREMENTS (Male / Female) Normal Values 2D ECHO LV Diastolic Diameter PLAX 4.0 cm 4.2 - 5.9 / 3.9 - 5.3 cm IVS Diastolic Thickness 1.6 cm 0.6 - 1.0 / 0.6 - 0.9 cm IVS Systolic Thickness 1.8 cm LVPW Diastolic Thickness 1.6 cm 0.6 - 1.0 / 0.6 - 0.9 cm LVPW Systolic Thickness 2.6 cm LVOT Diameter 2.2 cm LV Ejection Fraction 2D Teich 64.5 % LV Ejection Fraction MOD 4C 56.8 % LV Ejection Fraction MOD 2C 53.2 % LV Ejection Fraction 2C AL 54.8 % LA Diameter 2.9 cm Aorta at Sinotubular Diameter 3.6 cm IVC Diameter 1.4 cm M-MODE LA Ao Ratio MM 0.8 AV Cusp Separation MM 2.5 cm DOPPLER AV Peak Velocity 104.0 cm/s LVOT Peak Velocity 82.0 cm/s AV Area Cont Eq vti 4.1 cm squared AV Area Cont Eq pk 2.9 cm squared MV Peak Velocity 92.0 cm/s MV Area PHT 3.0 cm squared Mitral E to A Ratio 0.8 TV Peak Velocity 231.5 cm/s TR Peak Velocity 237.0 cm/s TR Peak Gradient 22.5 mmHg TV Peak E Velocity 46.0 cm/s PV Peak Velocity 97.0 cm/s FINDINGS Left Ventricle Normal left ventricular size and systolic function, EF 57%.. Mild left ventricular hypertrophy. No regional wall motion abnormalities. Grade I/IV diastolic dysfunction (abnormal relaxation filling pattern), normal to mildly elevated filling pressures. Right Ventricle Normal right ventricular size and systolic function. Right Atrium The right atrium is normal in size. Left Atrium The left atrium is normal in size. Mitral Valve Trace mitral valve regurgitation. Aortic Valve Trace to mild aortic valve regurgitation. Tricuspid Valve Mild tricuspid valve regurgitation. Pulmonic Valve Mild pulmonary valve regurgitation. Pericardium Normal pericardium without effusion. Aorta Slightly dilated aortic root measuring 4.1 cm in diameter at the level of the sinuses IVC Normal inferior vena cava. CONCLUSIONS Normal left ventricular size and systolic function, EF 57%.. Mild left ventricular hypertrophy. No regional wall motion abnormalities. Grade I/IV diastolic dysfunction (abnormal relaxation filling pattern), normal to mildly elevated filling pressures. Trace mitral valve regurgitation. Trace to mild aortic valve regurgitation. Mild tricuspid valve regurgitation. Estimated pulmonary artery peak systolic pressure 25 mmHg There is no pericardial effusion. There are no intracardiac masses. No similar previous studies are available for comparison Dr Philip Jerome MD FACC (Electronically Signed) Final Date: 14 November 2024 19:47 S
[2024-11-11 21:00] VITALS: BP 124/72
[2024-11-11] MEDS: enoxaparin 100 mg/mL Syringe 90 MG SUBCUT (21:07)
[2024-11-11] MEDS: clopidogrel 300 mg Tablet PO (21:07)
[2024-11-11 21:13] LABS: Troponin 5 2HR 317.1 ng/L (0-15); Troponin 5 2HR Delta 59.1 ABS# (0-10)
[2024-11-11 21:47] VITALS: BP 132/91; PULSE 68; O2SAT 95
[2024-11-11 23:44] VITALS: BP 143/91; PULSE 67; RESP 17; O2SAT 92
[2024-11-12] VITALS (8 sets, daily range): BP systolic 130–172; BP diastolic 70–101; PULSE 0–90; RESP 8–20; TEMP 36.4–36.6; O2SAT 92–97
[2024-11-12 01:15] LABS: Troponin 5 6HR 458.7 ng/L (0-15); Troponin 5 6HR Delta 200.7 ng/L (0-12)
--- NOTE | 2024-11-12 01:44 | ECG_ITS ---
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 Measurements Intervals Independence Rate: 66 P: 3 VA: 180 QRS: -62 QRSD: 145 T: 8 QT: 447 QTc: 469 Interpretive Statements SINUS RHYTHM INTRAVENTRICULAR CONDUCTION DELAY [130+ ms QRS DURATION] Compared to ECG 11/11/2024 19:29:07 Intraventricular conduction delay now present Ventricular premature complex(es) no longer present Right bundle-branch block no longer present Left anterior fascicular block no longer present Electronically Signed On 11-12-2024 06:23:52 CDT by Philip Jerome M.D. [email or web address]
--- NOTE | 2024-11-12 01:54 | PM.HP ---
Providers/Chief Complaint Admitting Physician: Britany Adam MD--patient seen before midnight Primary Care Provider: SAAD Salguero Chief Complaint: leesa sent for elevated triponin History of Present Illness Can Astorga is a 64 year old male with medical history significant for coronary artery disease and chest pains. Patient also has history of high blood pressure and high cholesterol. Patient started having some chest pain for which he went to the primary care doctor for evaluation. Upon having an EKG done and running blood test troponin was noted to be elevated at the point the primary care doctor told him to go to the emergency room for proper evaluation. Patient initiated coronary artery disease with stent placements x 2 we are diagnosed in 2016. It takes at least 5 years for coronary to mature and this is a long time since the last CAD we are optimized. Patient is at risk. Cardiology was consulted by the ED attending with Dr. Jerome. I have been consulted from the ED to follow-up with the patient and evaluate for admission. Patient troponin was also elevated here in the emergency room. Patient is to be admitted inpatient patient does have NSTEMI. I have made patient n.p.o. after midnight in case patient goes to cardiac catheterization in the morning. Patient had received an initial 300 mg of Plavix and also full aspirin. Will continue with Plavix 75 mg 1 tablet p.o. daily and initiate Lovenox therapeutic 90 mg every 12 hours. Patient had not had any further chest pain since arriving to the emergency room. Echocardiogram was done at patient's bedside here in the emergency room. Review of Systems Narrative: General The patient looks well in no apparent distress chest pain-free. Have gentle hydration for volume. Vital signs stable. System review of all 10 organ review were unremarkable except for cardiovascular Medications/Allergies Home Medications ?Medication ?Instructions ?Recorded ?Confirmed ?Last Taken ?Type amlodipine 5 mg tablet 5 mg PO DAILY 08/03/19 10/23/23 10/07/23 History cyclobenzaprine 5 mg tablet 5 mg PO TID PRN muscle spasm #90 01/09/21 10/23/23 10/07/23 Rx tabs ezetimibe 10 mg tablet 10 mg PO ONCE 09/17/23 10/23/23 10/06/23 History losartan 50 mg tablet 50 mg PO ONCE 09/17/23 10/23/23 10/06/23 History acetaminophen 650 mg 650 mg PO Q12H 10/04/23 10/23/23 10/07/23 History tablet,extended release multivitamin 1 tab PO DAILY 10/04/23 10/23/23 10/06/23 History oxycodone 5 mg tablet 5 mg PO Q8H PRN pain #20 tabs 10/07/23 10/23/23 Unknown Rx Allergies Allergy/AdvReac Type Severity Reaction Status Date / Time Brvoxel-BUJ-YkQ Reductase Allergy Unknown Unknown Verified 11/11/24 18:49 Inhibitor (Yonmbwi-Vxa-Kba Reductase Inhibitor) lisinopril Allergy Cough Verified 11/11/24 18:49 PFSH Acute PFSH: Medical History (Updated 11/11/24 @ 20:38 by Tayler Matos MD) ASHD (arteriosclerotic heart disease) HTN (hypertension) Hyperlipidemia Surgical History (Updated 10/23/23 @ 08:52 by Jesus Tyler MD) H/O inguinal hernia repair S/P PTCA (percutaneous transluminal coronary angioplasty) Family History Father Cancer CAD (coronary artery disease) Sister Hypertension Social History Smoking and tobacco/nicotine status: former use of tobacco/nicotine Household members: spouse Marital status: service: Yes branch: [employer] Vitals/I&O/Wt Last Vital Signs Temp 98.4 F 11/11/24 18:45 Pulse 0 L 11/12/24 00:09 Resp 17 11/11/24 23:44 BP 138/97 11/12/24 00:55 Pulse Ox 92 11/11/24 23:44 O2 Del Method Room Air 11/12/24 00:09 Weight last 48 hrs Weight 94.489 kg Weight 94.801 kg Physical Exam Narrative: Generally patient looks well in no apparent distress at my evaluation. Patient is chest pain-free in the emergency room. HEENT normocephalic/atraumatic neck neck is supple cardiovascular heart is regular lungs are pretty much clear abdomen soft nontender nondistended unremarkable extremities are intact no edema has good pulses neurology there is no focality lab studies lab studies reviewed and noted. Data 11/11/24 18:57 11/11/24 18:57 A&P Assessment and plan (1) Chest pain: Cardiac chest pains - Patient is with NSTEMI, admitted to stepdown unit - Patient had received 300 mg of Plavix and full aspirin in the emergency room - Follow-up with Plavix 75 mg once daily till workup is completed - Patient on telemetry in stepdown location - N.p.o. after midnight to anticipate cardiac catheterization tomorrow 11/12/2024 - Gentle hydration (2) Non-ST elevated myocardial infarction: Antiplatelets and anticoagulant be continued Cardiology on consult Continue to keep patient n.p.o. after midnight for possible cardiac catheterization (3) ASHD (arteriosclerotic heart disease): Continue care as indicated of CAD (4) HTN (hypertension): Patient is normotensive blood pressure is controlled on her patient antihypertensive medication with amlodipine (5) Hyperlipidemia: Continue nonstatin medication patient is allergic to statins. Plan GI and DVT prophylaxis in place PDMP PDMP Reviewed: Not Reviewed Attestations Medical Necessity Statement*: Patient is NSTEMI and deserves to have at least 2 midnights stay in the hospital for further optimization of care Coding Level of Care Code 40372 Diagnoses Chest pain R07.9 Non-ST elevated myocardial infarction I21.4 ASHD (arteriosclerotic heart disease) I25.10 HTN (hypertension) I10 Hyperlipidemia E78.5 Time Spent (min) 60
[2024-11-12 02:00] LABS: Basophils # 0.1 10^3/uL (0.0-0.1); Basophils % 0.9 %; Eosinophils # 0.4 10^3/uL (0.0-0.8); Hematocrit 46.5 % (37-53); Lymphocytes # 2.8 10^3/uL (0.8-4.8); Lymphocytes % 30.8 %; Mean Corpuscular HGB Conc 34.4 g/dL (30-55); Mean Corpuscular Hemoglobin 30.6 pg (27-33); Mean Corpuscular Volume 88.9 fl (82-101); Mean Platelet Volume 9.5 fL (7.4-10.4); Monocytes # 0.6 10^3/uL (0.2-0.9); Monocytes % 6.2 %; Neutrophils # 5.23 10^3/uL (1.8-7.7); Nucleated Red Blood Cells % 0 %; Platelet Count 182 10^3/cmm (157-399); Red Blood Count 5.23 10^6/uL (3.85-5.65); Red Cell Distribution Width 12.4 % (12.1-15.1); White Blood Count 9.02 10^3/uL (3.29-11.43)
[2024-11-12 02:17] LABS: Alanine Aminotransferase 35 U/L (0-41); Alkaline Phosphatase 76 U/L (40-130); Anion Gap 14.9 (5-19); Aspartate Amino Transferase 38 U/L (0-40); Blood Urea Nitrogen 13 mg/dL (8-23); Calcium 9.2 mg/dL (8.5-10.5); Carbon Dioxide 27 mmol/L (22-29); Chloride 102 mmol/L (98-107); Creatinine Clr Calc Pharmacy 111.9193; Globulin 2.4 g/dL (1.3-4.6); Glomerular Filtration Rate 96.7 mL/min (90-130); Glucose 133 mg/dL (65-115); Osmolality Calculated 292 mOsm/kg (285-295); Phosphorus 2.7 mg/dL (2.5-4.5); Potassium 3.9 mmol/L (3.5-5.1); Sodium 140 mmol/L (136-145); Total Bilirubin 0.4 mg/dL (0.15-1.2); Total Protein 6.4 g/dL (6.6-8.7)
[2024-11-12] MEDS: sodium chloride 0.9% 1,000 ML 75 ML IV (02:32)
--- OUTSIDE RECORDS SUMMARY | 2024-11-12 06:24 | XMS_ITS | Clinical Summary ---
Author Organization [facility] Address [address] [place] [address] Phone Care Team Providers Care Bus Washer Name Role Phone Unavailable Primary Care Provider Unavailabl e Allergies No known active allergies Medications aspirin (ECOTRIN EC) 81 mg Tablet, Delayed Release (E.C.)Indication s:Takes 2 tab per day. Take 81 mg by mouth daily. Active amLODIPine (NORVASC) 5 mg tablet Take 5 mg by mouth daily. 2 10/31/2018 Active ibuprofen (MOTRIN) 200 mg tablet Take 800 mg by mouth 2 times daily. Active chlorzoxazone (PARAFON FORTE) 500 mg tabletIndication s:Cervical pain Take 1 Tablet (500 mg) by mouth daily at bedtime. 15 Tablet 12/30/2018 Active diclofenac sodium (VOLTAREN) 50 mg Tablet, Delayed Release (E.C.)Indication s:Cervical radiculopathy,St rain of left trapezius muscle, subsequent encounter Take 1 Tablet (50 mg) by mouth 3 times daily as needed for Pain. 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 Gender Identity Not on file Sexual Orientation Not on file Last Filed Vital Signs Vital Sign Reading Time Taken Comments Blood Pressure 148/85 04/16/2019 1:30 PM CABLE SUPERVISOR Pulse 68 04/16/2019 1:30 PM CABLE SUPERVISOR Temperature 36.6 C (97.8 F) 02/13/2011 1:04 PM CDT Respiratory Rate 16 04/16/2019 1:30 PM CABLE SUPERVISOR Oxygen Saturation - - Inhaled Oxygen Concentration - - Weight 96.6 kg (213 lb) 04/16/2019 1:30 PM CABLE SUPERVISOR Height 188 cm (6' 2 ) 04/16/2019 1:30 PM CABLE SUPERVISOR Body Mass Index 27.35 04/16/2019 1:30 PM CABLE SUPERVISOR Plan of Treatment Health Maintenance Due Date Last Done Comments DTAP/TDAP/TD VACCINES (1 - Tdap) 1977 COLORECTAL SCREENING 2003 Colorectal Cancer Screening 2003 FIT-DNA Q 3 years 2003 FIT/FOBT Q 1 year 2003 Flex Sig/CT Colonography Q 5 years 2003 PNEUMOCOCCAL VACCINE 50+ YEARS (1 of 1 - PCV) 02/21/20 08 ZOSTER VACCINE (1 of 2) 02/21/2008 INFLUENZA VACCINE (#1) 2023 RSV VACCINE (60+ or ) (1 - 1-dose 75+ series) 2033 Insurance * Guarantor: [id number] Account Type Relation to Patient Date of Phone Billing Address Workers Comp Employer [employer] [employer] [id number] [place] [id number]
--- OUTSIDE RECORDS SUMMARY | 2024-11-12 06:24 | XMS_ITS | Encounter Summary ---
Author Organization [facility] Address [address] [place] [address] Care Team Providers Care Hospice Care Consultant Name Role Phone Amy Cisneros Primary Care Provider [phone] Encounter Details Date Type Department Care Team (Latest Contact Info) Description 09/09/2024 Results Follow-Up [facility] [address] [place] [address] Kiana Miller FNP [address] [place] [address] CBC WITH DIFFERENTIAL, COMPREHENSIVE METABOLIC PANEL, TSH, Additional followed-up results: 2 Social History Tobacco Use Types Packs/Day Years Used Date Smoking Tobacco: Former Smokeless Tobacco: Never Alcohol Use Standard Drinks/Week Comments Not Currently 0 (1 standard drink = 0.6 oz pur e alcohol) Sex and Gender Information Value Date Recorded Sex Assigned at Not on file 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 Gender Identity Not on file Sexual Orientation Not on file documented as of this encounter Plan of Treatment Upcoming Encounters Date Type Department Care Team (Late st Contact Info) Description 09/08/2025 8:00 AM CDT Office Visit [facility] [address] [place] [address] Kiana Miller [facility] [address] [place] [address] documented as of this encounter Visit Diagnoses Not on filedocumented in this encounter Care Teams Hospice Care Consultant Relationship Specialty Start Date End Date Amy Cisneros DO [address] [place] [id number] PCP - General Family Practice 08/28/23 documented as of this encounter
--- OUTSIDE RECORDS SUMMARY | 2024-11-12 06:24 | XMS_ITS | Encounter Summary ---
Author Organization [facility] Address [address] [place] [address] Care Team Providers Care Incident Response Consultant Name Role Phone Unavailable Primary Care Provider Unavailabl e Encounter Details Date Type Department Care Team (Latest Contact Info) Description 11/19/2001 Outpatient Historical HIS [facility] Gavin Parr MD [address] [place] [address] STOMACH FUNCTION DIS NEC (Primary Dx); SCREENING MAL NEOP-PROSTATE; SCREENING-ENDOC/NUT/ MET/IMMUN OTHER; SCREENING-LIPOID DISORDERS Social History Tobacco Use Types Packs/Day Years Used Date Smoking Tobacco: Never Assessed Sex and Gender Information Value Date Recorded Sex Assigned at Not on file 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
--- OUTSIDE RECORDS SUMMARY | 2024-11-12 06:24 | XMS_ITS | Encounter Summary ---
Author Organization [facility] Address [address] [place] [address] Care Team Providers Care Consumer Education Specialist Name Role Phone Unavailable Primary Care Provider Unavailabl e Encounter Details Date Type Department Care Team (Latest Contact Info) Description 07/19/2000 Outpatient Historical HIS [facility] Gavin Parr MD [address] [place] [address] Bronchitis, not specified as acute or chronic (Primary Dx) Social History Tobacco Use Types Packs/Day Years Used Date Smoking Tobacco: Never Assessed Sex and Gender Information Value Date Recorded Sex Assigned at Not on file 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
--- OUTSIDE RECORDS SUMMARY | 2024-11-12 06:24 | XMS_ITS | Encounter Summary ---
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
--- OUTSIDE RECORDS SUMMARY | 2024-11-12 06:24 | XMS_ITS | Clinical Summary ---
Author Organization [employer] Address [address] [facility] Attn: [place] [address] Care Team Providers Care Planning Management It Specialist Name Role Phone Blayne Amy Zandra JULIO Primary Care Provider Allergies Active Allergy Reactions Criticality Noted Date Comments Lisinopril Cough Low 09/05/2023 Ffggbot-Nhr-Bry Reductase Inhibitors Unknown 08/28/2023 Medications acetaminophen (TYLENOL) 325 mg tablet Take 650 mg by mouth 2 times daily. Active amLODIPine (NORVASC) 5 mg tabletIndications:B enign hypertension Take 1 Tablet (5 mg) by mouth daily. 100 Tablet 3 5 Active cyclobenzaprine (FLEXERIL) 5 mg TabletIndications:D egeneration of intervertebral disc of cervicothoracic region Take 1 Tablet (5 mg) by mouth 3 times daily as needed for Pain or Spasm. for muscle spasms 270 Tablet 3 5 Active ezetimibe (ZETIA) 10 mg tabletIndications:M ixed hyperlipidemia Take 1 Tablet (10 mg) by mouth daily. 90 Tablet 3 5 Active losartan (COZAAR) 50 mg tabletIndications:B enign hypertension Take 1 Tablet (50 mg) by mouth daily. 100 Tablet 3 5 Active meloxicam (MOBIC) 15 mg tabletIndications:D egeneration of intervertebral disc of cervicothoracic region Take 1 Tablet (15 mg) by mouth daily. 90 Tablet 3 5 Active traMADol (ULTRAM) 50 mg tabletIndications:D egeneration of intervertebral disc of cervicothoracic region,Chronic neck pain Take 1 Tablet (50 mg) by mouth every 8 hours as needed for Pain. 30 Tablet Active traMADoL (ULTRAM) 50 mg tablet Take 50 mg by mouth every 6 hours as needed for Pain. 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 08/28/2023 Hyperlipidemia 08/28/2023 History of coronary artery stent placement 08/27 Assessment & Plan (08/28/2023 8:47 AM CDT): 2 stents in 2016 Chronic neck pain 12/30/2018 Encounters Date Type Department Care Team Description 11/11/2024 5:02 PM CDT - 11/11/2024 11:59 PM CDT Hospital Encounter [facility] [address] [facility] [address] [place] [address] Kiana Miller FNP Arrived Discharge Disposition: Home or Self Care 11/11/2024 5:00 PM CDT - 11/11/2024 11:59 PM CDT Hospital Encounter [facility] [place] [address] [facility] [address] [place] [address] Kiana Miller FNP Arrived Discharge Disposition: Home or Self Care 11/11/2024 3:40 PM CDT Office Visit [facility] [address] [place] [address] Kiana Miller FNP History of coronary artery stent placement (Primary Dx); Benign hypertension; Chest pain, unspecified type; Shortness of breath 11/11/2024 Telephone [facility] [address] [place] [phone] Marlin Edwards RN [facility] Talent Sourcer 11/11/2024 Orders Only [facility] [address] [place] [address] Kiana Miller FNP 11/05/2024 Refill [facility] [address] [place] [address] Amy Cisneros, Degeneration of intervertebral disc of cervicothoracic region (Primary Dx); Chronic neck pain 09/09/2024 Results Follow-Up [facility] [address] [place] [address] Kiana Miller FNP CBC WITH DIFFERENTIAL, COMPREHENSIVE METABOLIC PANEL, TSH, Additional followed-up results: 2 09/08/2024 8:00 AM CDT Office Visit [facility] [address] [place] [address] Kiana Miller FNP Benign hypertension (Primary Dx); Mixed hyperlipidemia; Degeneration of intervertebral disc of cervicothoracic region; Esophageal dysphagia; Screening PSA (prostate specific antigen); Colon cancer screening declined 08/22/2024 Refill [place] [address] [place] [address] Kiana Miller FNP Mixed hyperlipidemia from Last 3 Months Social History Tobacco Use Types Packs/Day Years Used Date Smoking Tobacco: Former Smokeless Tobacco: Never Alcohol Use Standard Drinks/Week Comments Not Currently 0 (1 standard drink = 0.6 oz pur e alcohol) Sex and Gender Information Value Date Recorded Sex Assigned at Not on file 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 Gender Identity Not on file Sexual Orientation [...] Mass Index 26.83 11/11/2024 3:52 PM CDT Plan of Treatment Upcoming Encounters Date Type Department Care Team (Late st Contact Info) Description 09/08/2025 8:00 AM CDT Office Visit [facility] [place] [address] [place] [phone] Kiana Miller, FUR VAULT ATTENDANT [address] [place] [phone] Health Maintenance Due Date Last Done Comments FIT/ DNA Q 3 YEARS (AUTO ORDER) 02/21/1976 FIT/FOBT Q 1 YEAR (AUTO ORDER) 02/21/1976 FLEX SIG/CT COLONOGRAPHY Q 5 YEARS (AUTO ORDER) 02/21/1976 DTAP/TDAP/TD VACCINES (1 - Tdap) 1977 COLORECTAL CANCER SCREENING (AUTO ORDER) 2003 COLORECTAL SCREENING 2003 Colorectal Cancer Screening (AUTO ORDER) 2003 Colorectal Cancer Screening 2003 FIT-DNA Q 3 years 2003 FIT/FOBT Q 1 year 2003 Flex Sig/CT Colonography Q 5 years 2003 PNEUMOCOCCAL VACCINE 50+ YEA RS (1 of 1 - PCV) 02/21/2008 ZOSTER VACCINE (1 of 2) 02/21/2008 RSV VACCINE (60+ or ) (1 - Risk 60-74 years 1-dose series) 2018 Pre-Diabetes and Diabetes Screening 08/26/2021 08/26/2018, 09/03/2017, 09/14/2015 Abdominal Aortic Aneurysm (A AA) Screening 2023 [place] Prev entative Visit/Annual Wellness Visit 05/27/2024 03/10/2024 INFLUENZA VACCINE Completed 03/10/2024 Procedures Procedure Name Priority Date/Time Associated Diagnosis Comments TROPONIN Stat 11/11/2024 5:25 PM CDT History of coronary artery stent placement Benign hypertension Chest pain, unspecified type Shortness of breath D-DIMER Stat 11/11/2024 5:25 PM CDT History of coronary artery stent placement Benign hypertension Chest pain, unspecified type Shortness of breath LIPASE Stat 11/11/2024 5:25 PM CDT Chest pain, unspecified type COMPREHENSIVE METABOLIC PANEL Stat 11/11/2024 5:25 PM CDT History of coronary artery stent placement Benign hypertension Chest pain, unspecified type CBC WITH DIFFERENTIAL Stat 11/11/2024 5:25 PM CDT History of coronary artery stent placement Benign hypertension Chest pain, unspecified type XR CHEST PA AND LATERAL 2 VW Stat 11/11/2024 5:12 PM CDT History of coronary artery stent placement Benign hypertension Chest pain, unspecified type Shortness of breath [place] ECG ROUTINE ECG W/LEAST 12 LDS W/I&R Routine 11/11/2024 3:40 PM CDT PSA Routine 09/08/2024 8:28 AM CDT Screening PSA (prostate specific antigen) LIPID PANEL Routine 09/08/2024 8:28 AM CDT Benign hypertension Mixed hyperlipidemia TSH Routine 09/08/2024 8:28 AM CDT Benign hypertension Mixed hyperlipidemia COMPREHENSIVE METABOLIC PANEL Routine 09/08/2024 8:28 AM CDT Benign hypertension Mixed hyperlipidemia CBC WITH DIFFERENTIAL Routine 09/08/2024 8:28 AM CDT Benign hypertension Mixed hyperlipidemia HEMOGLOBIN A1C Routine 08/26/2018 6:31 AM CDT from Last 3 Months or Most Recently Relevant to Health Maintenance Results * (ABNORMAL) CBC WITH DIFFERENTIAL (11/11/2024 5:25 PM CDT) Only the most recent of2 resultswithin the time period is included. WBC 8.7 4.2 - 9.1 K/uL 11/11/2024 5:[address] [facility] RBC 5.53 4.63 - 6.08 M/uL 11/11/2024 5:33 PM [facility] HEMOGLOBIN 17.1 13.7 - 17.5 g/dL 11/11/2024 5:33 PM [facility] HEMATOCRIT 48.6 40.1 - 51.0 % 11/11/2024 5:33 PM [facility] MCV 87.9 79.0 - 92.2 fL 11/11/2024 5:33 PM [facility] MCH 30.9 25.7 - 32.2 pg 11/11/2024 5:33 PM [facility] MCHC 35.2 32.3 - 36.5 g/dL 11/11/2024 5:33 PM [facility] RDW 12.4 11.0 - 14.5 % 11/11/2024 5:33 PM [facility] RDW-STDEV 40.0 36.9 - 56.9 fL 11/11/2024 5:33 PM [facility] PLATELETS 217 130 - 400 K/uL 11/11/2024 5:33 PM [facility] MPV 9.1(L) 10.0 - 14.8 fL 11/11/2024 5:33 PM [facility] NEUTROPHILS 65 34 - 68 % 11/11/2024 5:33 PM [facility] LYMPHOCYTES 25 22 - 53 % 11/11/2024 5:33 PM [facility] MONOCYTES 6 5 - 12 % 11/11/2024 5:33 PM [facility] EOSINOPHILS 3 1 - 7 % 11/11/2024 5:33 PM [facility] BASOPHILS 1 0 - 1 % 11/11/2024 5:33 PM [facility] IMMATURE GRANULOCYTES 0 % 11/11/2024 5:33 PM [facility] NEUTROPHIL ABSOLUTE 5.67(H) 1.78 - 5.38 K/uL 11/11/2024 5:33 PM [facility] LYMPHOCYTE ABSOLUTE 2.20 1.20 - 3.40 K/uL 11/11/2024 5:33 PM [facility] MONOCYTE ABSOLUTE 0.54 0.30 - 0.82 K/uL 11/11/2024 5:[address] [facility] EOSINOPHIL ABSOLUTE 0.24 0.04 - 0.54 K/uL 11/11/2024 5:[address] [facility] BASOPHILS ABSOLUTE 0.08 0.01 - 0.08 K/uL 11/11/2024 5:[address] [facility] IMMATURE GRANULOCYTES ABSOLUTE 0.01 K/uL 11/11/2024 5:[address] [facility] Blood BLOOD SPECIMEN / Unknown Venipuncture / Unknown 11/11/2024 5:25 PM CDT 11/11/2024 5:27 PM CDT Kiana Miller FUR VAULT ATTENDANT HEMATOLOGY ORDERABLES Lolly arriaga Result [facility] CLIA # [id number] [address] [place] [address] * D-DIMER (11/11/2024 5:25 PM CDT) D-DIMER QUANT <0.15 <0.50 ug/mL FEU 11/11/2024 5:[address] [facility] Blood BLOOD SPECIMEN / Unknown Venipuncture / Unknown 11/11/2024 5:25 PM CDT 11/11/2024 5:[address] [facility] - 11/11/2024 5:56 PM CDT D-Dimer assay [...] 71-80 years: 0.71-0.80 ug/mL FEU Kiana Gomez Miller FUR VAULT ATTENDANT HEMATOLOGY ORDERABLES Lolly l Result [facility] CLIA # [id number] [address] [place] [address] [id number] * (ABNORMAL) TROPONIN (11/11/2024 5:25 PM CDT) TROPONIN T, 5TH GEN 285(HH) <=15 ng/L 11/11/2024 6:[address] [facility] Blood BLOOD SPECIMEN / Unknown Venipuncture / Unknown 11/11/2024 5:25 PM CDT 11/11/2024 5:[address] [facility] - 11/11/2024 6:00 PM CDT Troponin elevated. Kiana Gomez Miller FUR VAULT ATTENDANT CHEMISTRY ORDERABLES Final Result Performing Organization Address City/[facility]/ZIP Co de Phone Number [facility] CLIA # [id number] [address] [place] [address] * LIPASE (11/11/2024 5:25 PM CDT) [facility] LIPASE 47 13 - 60 U/L 11/11/2024 5:[address] [facility] Blood BLOOD SPECIMEN / Unknown Venipuncture / Unknown 11/11/2024 5:25 PM CDT 11/11/2024 5:27 PM CDT Kiana Gomez [facility] FUR VAULT ATTENDANT CHEMISTRY ORDERABLES Final Result [facility] CLIA # [id number] [address] [place] [address] * COMPREHENSIVE METABOLIC PANEL (11/11/2024 5:25 PM CDT) Only the most recent of2 resultswithin the time period is included. SODIUM 141 136 - 145 mmol/L 11/11/2024 5:56 PM [facility] POTASSIUM 4.3 3.5 - 5.1 mmol/L 11/11/2024 5:56 PM [facility] CHLORIDE 103 98 - 107 mmol/L 11/11/2024 5:56 PM [facility] CO2 27 22 - 29 mmol/L 11/11/2024 5:56 PM [facility] CALCIUM 9.5 8.8 - 10.2 mg/dL 11/11/2024 5:56 PM [facility] BUN 15 8 - 23 mg/dL 11/11/2024 5:56 PM [facility] CREATININE 0.96 0.67 - 1.17 mg/dL 11/11/2024 5:56 PM [facility] GLUCOSE 99 74 - 99 mg/dL 11/11/2024 5:56 PM [facility] TOTAL PROTEIN 6.9 6.6 - 8.7 g/dL 11/11/2024 5:56 PM [facility] ALBUMIN 4.6 3.5 - 5.2 g/dL 11/11/2024 5:56 PM [facility] BILIRUBIN TOTAL 0.4 0.0 - 1.2 mg/dL 11/11/2024 5:56 PM [facility] ALKALINE PHOSPHATASE 81 40 - 129 U/L 11/11/2024 5:56 PM [facility] AST 43 0 - 50 U/L 11/11/2024 5:56 PM [facility] ALT 42 0 - 50 U/L 11/11/2024 5:56 PM [facility] GFR >60 >=60 mL/min/1.7 3 sq meter 11/11/2024 5:56 PM [facility] Comment:eGFR calculated with 2020 CKD-EPI equation. Vegetarian diet, extremely high or low muscle mass, and may affect results. Cystatin C with Glomerular Filtration Rate is a suitable alternative for these patients. ANION GAP 11 5 - 20 mmol/L 11/11/2024 5:[address] [facility] Blood BLOOD SPECIMEN / Unknown Venipuncture / Unknown 11/11/2024 5:25 PM CDT 11/11/2024 5:27 PM CDT Kiana Miller FUR VAULT ATTENDANT CHEMISTRY ORDERABLES Final Result [facility] CLIA # [id number] [address] [place] [address] * XR CHEST PA AND LATERAL 2 [...] further evaluation. 2. Otherwise unremarkable exam. Kiana NASH DIAGNOST[facility] ORDERAB LES Final Result * (ABNORMAL) [place] ECG ROUTINE ECG W/LEAST 12 LDS W/I&R (11/11/2024 3:40 PM CDT) Narrative [facility] - 11/11/2024 3:40 PM CDT Kiana Miller FNP 11/11/2024 4:47 PM EKG 12-LEAD Date/Time: 11/11/2024 3:40 PM Performed by: Kiana Miller FNP Authorized by: Kiana Miller FNP Comparison: not compared with previous ECG Previous ECG: no previous ECG available Rhythm: sinus rhythm and bundle branch block Rate: normal QRS axis: normal Conduction: right bundle branch block ST Segments: ST segments normal T Waves: T waves normal Other: no other findings Clinical impression: abnormal ECG Kiana NASH ECG ORDERABLES Edited Res ult - Final [facility] CLIA# [id number] [facility] [place] [address] * TSH (09/08/2024 8:28 AM CDT) [facility] TSH 0.97 0.40 - 4.50 mIU/L [facility] Comment: Test Performed at: [facility] [address] [place] [address] Rachelle Hinton MD Blood 09/08/2024 8:28 AM CDT 09/08/2024 8:28 AM CDT Tanidiane Miller [facility] CHEMISTRY ORDERABLES Final Result [facility] [phone] [facility] [place] [address] * PSA (09/08/2024 8:28 AM CDT) [facility] PSA 0.44 < OR = 4.00 ng/mL [facility] Comment: The total PSA value from this assay system is standardized against the WHO standard. The test result will be approximately 20% lower when compared to the equimolar-standardized total PSA (Dilia Elli). Comparison of serial PSA results should be interpreted with this fact in mind. This test was performed using the Siemens chemiluminescent method. Values obtained from different assay methods cannot be used interchangeably. PSA levels, regardless of value, should not be interpreted as absolute evidence of the presence or absence of disease. FASTING:YES FASTING: YES Test Performed at: [facility] [address] [place] [address] Rachelle Hinton MD Blood 09/08/2024 8:28 AM CDT 09/08/2024 8:28 AM CDT Kiana Miller [facility] CHEMISTRY ORDERABLES Final Result [facility] [phone] [facility] [place] [address] * (ABNORMAL) LIPID PANEL (09/08/2024 8:28 AM CDT) [facility] CHOLESTEROL 181 <200 mg/dL [facility] HDL 53 > OR = 40 mg/dL [facility] TRIGLYCERIDE 129 <150 mg/dL [facility] LDL CALCULATED 105(H) mg/dL (calc) [facility] Comment: Reference range: <100 Desirable range <100 mg/dL for primary prevention; <70 mg/dL for patients with CHD or diabetic patients with > or = 2 CHD risk factors. LDL-C is now calculated using the Carl calculation, which is a validated novel method providing better accuracy than the Friedewald equation in the estimation of LDL-C. Jey SS et al. RADHA. 2013;310(15): 0136-0735 (http://education.[employer]/faq/TER274) CHOL/HDL RATIO 3.4 <5.0 (calc) [facility] NON-HDL CHOLESTEROL 128 <130 mg/dL (calc) [facility] Comment: For patients with diabetes plus 1 major ASCVD risk factor, treating to a non-HDL-C goal of <100 mg/dL (LDL-C of <70 mg/dL) is considered a therapeutic option. Test Performed at: [facility] [address] [place] [address] Rachelle Hinton MD Blood 09/08/2024 8:28 AM CDT 09/08/2024 8:28 AM CDT Kiana Miller FUR VAULT ATTENDANT CHEMISTRY ORDERABLES Final Result [facility] [phone] [facility] [address] [place] [address] * HEMOGLOBIN A1C (08/26/2018 6:31 AM CDT) [facility] HEMOGLOBIN A1C 5.1 4.0 - 6.0 % 08/28/2018 11:15 AM CDT [facility] [employer] EST. AVG GLUCOSE, A1C 100 mg/dL 08/28/2018 11:15 AM CDT [facility] [employer] Blood Collection / Unknown 08/26/2018 6:31 AM CDT 08/26/2018 1:19 PM CDT Narrative [facility] [employer] - 08/28/2018 11:15 AM CDT HGB A1C INTERPRETATION NORMAL: <5.7% PRE-DIABETES: 5.7 - 6.4% DIABETES: 6.5% OR GREATER Román Clark DO CHEMISTRY ORDERABLES Final R esult [facility] [employer] ([employer]) [facility] CLIA# [id number] [address] [place] [address] [facility] [employer] ([employer]) [facility] CLIA# [id number] [facility] [place] [address] from Last 3 Months or Most Recently Relevant to Health Maintenance Insurance [facility] [id number] Care Teams Planning Management It Specialist Relationship Specialty Start Date End Date Amy Cisneros DO [address] [place] [address] PCP - General Family Practice 08/28/23
--- OUTSIDE RECORDS SUMMARY | 2024-11-12 06:24 | XMS_ITS | Encounter Summary ---
Author Organization [facility] Address [address] [place] [address] Care Team Providers Care Janitorial Maintenance Worker Name Role Phone Unavailable Primary Care Provider Unavailabl e Encounter Details Date Type Department Care Team (Latest Contact Info) Description 12/16/2002 Outpatient Historical [facility] Rubén Blake MD [address] [place] [address] ALLERGIC RHINITIS NOS (Primary Dx); MYALGIA AND MYOSITIS NOS Social History Tobacco Use Types Packs/Day Years Used Date Smoking Tobacco: Never Assessed Sex and Gender Information Value Date Recorded Sex Assigned at Not on file 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
--- OUTSIDE RECORDS SUMMARY | 2024-11-12 06:24 | XMS_ITS | Encounter Summary ---
Author Organization [facility] Address [address] [place] [address] Care Team Providers Care Adjunct Professor Of Voice Name Role Phone Unavailable Primary Care Provider Unavailabl e Encounter Details Date Type Department Care Team (Late st Contact Info) Description 09/03/2017 Lab Requisition [facility] [address] 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 Gender Identity Not on file Sexual Orientation Not on file documented as of this encounter Plan of Treatment Not on file documented as of this encounter Procedures Procedure Name Priority Date/Time Associated Diagnosis Comments HEMOGLOBIN A1C Routine 09/03/2017 8:22 AM CDT LIPID PANEL Routine 09/03/2017 8:22 AM CDT COMPREHENSIVE METABOLIC PANEL Routine 09/03/2017 8:22 AM CDT documented in this encounter Results * (ABNORMAL) COMPREHENSIVE METABOLIC PANEL (09/03/2017 8:22 AM CDT) SODIUM 141 136 - 145 mmol/L 09/03/2017 2:24 PM CDT [facility] POTASSIUM 4.4 3.5 - 5.1 mmol/L 09/03/2017 2:24 PM [facility] CHLORIDE 101 98 - 107 mmol/L 09/03/2017 2:24 PM [facility] CO2 28 22 - 29 mmol/L 09/03/2017 2:24 PM [facility] CALCIUM 8.8 8.6 - 10.0 mg/dL 09/03/2017 2:24 PM [facility] BUN 21(H) 6 - 20 mg/dL 09/03/2017 2:24 PM [facility] CREATININE 1.01 0.67 - 1.17 mg/dL 09/03/2017 2:24 PM [facility] GLUCOSE 86 74 - 106 mg/dL 09/03/2017 2:24 PM [facility] TOTAL PROTEIN 7.0 6.4 - 8.3 g/dL 09/03/2017 2:24 PM [facility] ALBUMIN 4.2 3.5 - 5.2 g/dL 09/03/2017 2:24 PM [facility] BILIRUBIN TOTAL 0.5 0.2 - 1.0 mg/dL 09/03/2017 2:24 PM [facility] ALKALINE PHOSPHATASE 84 40 - 129 U/L 09/03/2017 2:24 PM [facility] AST 29 10 - 50 U/L 09/03/2017 2:24 PM [facility] ALT 40 <=50 U/L 09/03/2017 2:24 PM [facility] GFR >60 >=60 mL/min/1.7 3 sq meter 09/03/2017 2:24 PM [facility] Comment: eGFR has not been validated for use in the elderly (> 70 years of age), women, patients with serious co-morbid conditions, or persons with extremes of body size or muscle mass and should also be interpreted with caution in patients with acute kidney failure, dialysis dependent patients, patients reporting exceptional dietary intake (e.g. vegetarian diet, high protein diets, creatine supplementation), and patients with severe liver disease. Based on National Kidney Disease Education Program If patient is , please refer to the GFR result. GFR, >60 >=60 mL/min/1.7 3 sq meter 09/03/2017 2:24 PM CDT [facility] ANION GAP 12 4 - 30 mmol/L 09/03/2017 2:24 PM CDT [facility] Blood Collection / Unknown 09/03/2017 8:22 AM CDT 09/03/2017 12:39 PM CDT Román Clark DO CHEMISTRY ORDERABLES Final R esult Performing Organization Address City/[facility] Co de Phone Number [facility] CLIA# [id number] [address] [place] [address] * HEMOGLOBIN A1C (09/03/2017 8:22 AM CDT) HEMOGLOBIN A1C 5.0 4.0 - 6.0 % 09/04/2017 9:15 AM CDT [facility] EST. AVG GLUCOSE, A1C 97 mg/dL 09/04/2017 9:15 AM CDT [facility] Blood Collection / Unknown 09/03/2017 8:22 AM CDT 09/03/2017 12:39 PM CDT Narrative [facility] - 09/04/2017 9:15 AM CDT Test performed on RadialpointII instrumentation using HPLC methodology Román Clark DO CHEMISTRY ORDERABLES Final R esult Performing Organization Address City/[facility] Co de Phone Number [facility] CLIA# [id number] [facility] [place] [address] * (ABNORMAL) LIPID PANEL (09/03/2017 8:22 AM CDT) CHOLESTEROL 179 <200 mg/dL 09/03/2017 2:24 PM CDT [facility] TRIGLYCERIDE 189(H) <150 mg/dL 09/03/2017 2:24 PM CDT [facility] HDL 42 40 - 59 mg/dL 09/03/2017 2:24 PM T [facility] LDL CALCULATED 99 <100 mg/dL 09/03/2017 2:24 PM T [facility] NON-HDL CHOLESTEROL 137(H) <130 mg/dL 09/03/2017 2:24 PM T [facility] Blood Collection / Unknown 09/03/2017 8:22 AM CDT 09/03/2017 12:39 PM CDT Narrative [facility] - 09/03/2017 2:24 PM CDT TOTAL CHOLESTEROL mg/dL Desirable <200 Borderline high 200-239 High >=240 TRIGLYCERIDES mg/dL Normal <150 Borderline high 150-199 High 200-499 Very high >=500 HDL CHOLESTEROL mg/dL Low <40 Normal 40-59 Desirable >=60 NON HDL CHOLESTEROL mg/dL Optimal <130 Near Optimal 130-159 Borderline High 160-189 Very High >=190 Calculated LDL mg/dL Optimal <100 Near Optimal 100-129 Borderline High 130-159 High 160-189 Very High >=190 ATPIII Guidelines Reference Ranges for Lipid Panels (NCEP/AMA) us Román Clark DO CHEMISTRY ORDERABLES Final R esult [facility] CLIA# [id number] [address] [place] [address] documented in this encounter Visit Diagnoses Not on filedocumented in this encounter
--- OUTSIDE RECORDS SUMMARY | 2024-11-12 06:24 | XMS_ITS | Encounter Summary ---
Author Organization [facility] Address [address] [place] [address] Care Team Providers Care Market Research Coordinator Name Role Phone Unavailable Primary Care Provider Unavailabl e Encounter Details Date Type Department Care Team (Late st Contact Info) Description 09/14/2015 Lab Requisition [facility] Services [address] 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 Gender Identity Not on file Sexual Orientation Not on file documented as of this encounter Plan of Treatment Not on file documented as of this encounter Procedures Procedure Name Priority Date/Time Associated Diagnosis Comments GLUCOSE FASTING Routine 09/14/2015 8:14 AM CDT LIPID PANEL Routine 09/14/2015 8:14 AM CDT documented in this encounter Results * GLUCOSE FASTING (09/14/2015 8:14 AM CDT) GLUCOSE-FASTIN G 86 70 - 99 mg/dL 09/14/2015 2:18 PM CDT [facility] [employer] [facility] Blood Collection / Unknown 09/14/2015 8:14 AM CDT 09/14/2015 12:48 PM CDT Narrative [facility] - 09/14/2015 2:18 PM CDT <100 mg/dl: Normal Fasting Glucose 100-125 mg/dl: Impaired Fasting Glucose >/=126 mg/dl: Provisional diagnosis of Diabetes The diagnosis must be confirmed. us Adonay Sheriff MD CHEMISTRY ORDERABLES Final Res ult Performing Organization Address City/[facility]/ZIP Co de Phone Number [facility] CLIA# [id number] [facility]ly [facility] [place] [address] * (ABNORMAL) LIPID PANEL (09/14/2015 8:14 AM CDT) [facility] CHOLESTEROL 181 <200 mg/dL 09/14/2015 2:18 PM CDT [facility] TRIGLYCERIDE 210(H) <150 mg/dL 09/14/2015 2:18 PM CDT [facility] HDL 42 40 - 59 mg/dL 09/14/2015 2:18 PM CDT [facility] LDL CALCULATED 97 <100 mg/dL 09/14/2015 2:18 PM CDT [facility] NON-HDL CHOLESTEROL 139(H) <130 mg/dL 09/14/2015 2:18 PM T [facility] Blood Collection / Unknown 09/14/2015 8:14 AM CDT 09/14/2015 12:48 PM CDT [facility] - 09/14/2015 2:18 PM CDT TOTAL CHOLESTEROL mg/dL Desirable <200 Borderline high 200-239 High >=240 TRIGLYCERIDES mg/dL Normal <150 Borderline high 150-199 High 200-499 Very high >=500 HDL CHOLESTEROL mg/dL Low <40 Normal 40-59 Desirable >=60 LDL CHOLESTEROL mg/dL Optimal <100 Low risk 100-129 Borderline high 130-159 High 160-189 Very high >=190 NON HDL CHOLESTEROL mg/dL Optimal <130 Near Optimal 130-159 Borderline High 160-189 High 190-219 Very high >=220 Based on AHA/NCEP Guidelines us Adonay Sheriff MD CHEMISTRY ORDERABLES Final Res ult Performing Organization Address City/[facility] Co de Phone Number [facility] CLIA# [id number] [facility] [place] [phone] documented in this encounter Visit Diagnoses Not on filedocumented in this encounter
--- OUTSIDE RECORDS SUMMARY | 2024-11-12 06:24 | XMS_ITS | Encounter Summary ---
Author Organization [facility] Address [address] [place] [address] Care Team Providers Care Customer Engagement Representative Name Role Phone Unavailable Primary Care Provider Unavailabl e Encounter Details Date Type Department Care Team (Late st Contact Info) Description 08/26/2018 Lab Requisition [facility] Laboratory Services [address] [place] [address] Román Clark DO [address] [address] Social History Tobacco Use Types Packs/Day Years Used Date Smoking Tobacco: Never Assessed Sex and Gender Information Value Date Recorded Sex Assigned at Not on file Legal Sex Male 5:19 AM CORRECTIONAL CORPORAL Gender Identity Not on file Sexual Orientation Not on file documented as of this encounter Plan of Treatment Not on file documented as of this encounter Procedures Procedure Name Priority Date/Time Associated Diagnosis Comments PSA Routine 08/26/2018 6:31 AM CDT HEMOGLOBIN A1C Routine 08/26/2018 6:31 AM CDT LIPID PANEL Routine 08/26/2018 6:31 AM CDT COMPREHENSIVE METABOLIC PANEL Routine 08/26/2018 6:31 AM CDT documented in this encounter Results * PSA (08/26/2018 6:31 AM CDT) PSA 0.5 0.0 - 4.0 ng/mL 08/26/2018 4:16 PM CDT [facility] Blood Collection / Unknown 08/26/2018 6:31 AM CDT 08/26/2018 1:19 PM CDT Román Clark DO CHEMISTRY ORDERABLES Final R esult Performing Organization Address [facility] Co de Phone Number [facility] CLIA# [id number] [address] [place] [address] * HEMOGLOBIN A1C (08/26/2018 6:31 AM CDT) HEMOGLOBIN A1C 5.1 4.0 - 6.0 % 08/28/2018 11:15 AM CDT [facility] EST. AVG GLUCOSE, A1C 100 mg/dL 08/28/2018 11:15 AM CDT [facility] Blood Collection / Unknown 08/26/2018 6:31 AM CDT 08/26/2018 1:19 PM CDT Narrative [facility] - 08/28/2018 11:15 AM CDT HGB A1C INTERPRETATION NORMAL: <5.7% PRE-DIABETES: 5.7 - 6.4% DIABETES: 6.5% OR GREATER Román Clark DO CHEMISTRY ORDERABLES Final R esult Performing Organization Address [facility] Co de Phone Number [facility] CLIA# [id number] [address] [place] [address] * (ABNORMAL) LIPID PANEL (08/26/2018 6:31 AM CDT) CHOLESTEROL 174 <200 mg/dL 08/26/2018 3:27 PM CDT [facility] TRIGLYCERIDE 141 <150 mg/dL 08/26/2018 3:27 PM CDT [facility] HDL 41 40 - 59 mg/dL 08/26/2018 3:27 PM CDT [facility] LDL CALCULATED 105(H) <100 mg/dL 08/26/2018 3:27 PM CDT [facility] NON-HDL CHOLESTEROL 133(H) <130 mg/dL 08/26/2018 3:27 PM T [facility] Blood Collection / Unknown 08/26/2018 6:31 AM CDT 08/26/2018 1:19 PM CDT [facility] - 08/26/2018 3:27 PM CDT TOTAL CHOLESTEROL mg/dL Desirable <200 [...] Clark DO CHEMISTRY ORDERABLES Final R esult [facility] CLIA# [id number] [address] [place] [address] * (ABNORMAL) COMPREHENSIVE METABOLIC PANEL (08/26/2018 6:31 AM CDT) SODIUM 142 136 - 145 mmol/L 08/26/2018 3:27 PM CDT [facility] POTASSIUM 4.0 3.5 - 5.1 mmol/L 08/26/2018 3:27 PM CDT [facility] CHLORIDE 103 98 - 107 mmol/L 08/26/2018 3:27 PM CDT [facility] CO2 28 22 - 29 mmol/L 08/26/2018 3:27 PM CDT [facility] CALCIUM 8.9 8.8 - 10.2 mg/dL 08/26/2018 3:27 PM CDT [facility] BUN 15 8 - 23 mg/dL 08/26/2018 3:27 PM [facility] CREATININE 1.03 0.67 - 1.17 mg/dL 08/26/2018 3:27 PM [facility] GLUCOSE 101(H) 74 - 99 mg/dL 08/26/2018 3:27 PM [facility] TOTAL PROTEIN 7.0 6.4 - 8.3 g/dL 08/26/2018 3:27 PM [facility] ALBUMIN 4.4 3.5 - 5.2 g/dL 08/26/2018 3:27 PM [facility] BILIRUBIN TOTAL 0.5 0.2 - 1.0 mg/dL 08/26/2018 3:27 PM [facility] ALKALINE PHOSPHATASE 78 40 - 129 U/L 08/26/2018 3:27 PM [facility] AST 26 10 - 50 U/L 08/26/2018 3:27 PM [facility] ALT 30 <=50 U/L 08/26/2018 3:27 PM [facility] GFR >60 >=60 mL/min/1.7 3 sq meter 08/26/2018 3:27 PM [facility] Comment: eGFR has not been validated [...] GFR, >60 >=60 mL/min/1.7 3 sq meter 08/26/2018 3:27 PM [facility] ANION GAP 11 9 - 20 mmol/L 08/26/2018 3:27 PM [facility] Blood Collection / Unknown 08/26/2018 6:31 AM CDT 08/26/2018 1:19 PM CDT us Román Clark DO CHEMISTRY ORDERABLES Final R esult [facility]# [id number] [address] [place] [address] documented in this encounter Visit Diagnoses Not on filedocumented in this encounter
--- OUTSIDE RECORDS SUMMARY | 2024-11-12 06:24 | XMS_ITS | Encounter Summary ---
Author Organization [facility] Address [address] [place] [address] Care Team Providers Care Lathe Set Up Person Name Role Phone Amy Cisneros DO Primary Care Provider [phone] Reason for Visit * Reason Onset Date Comments Val Pathology Technician 11/11/2024 Encounter Details Date Type Department Care Team (Late st Contact Info) Description 11/11/2024 Telephone [facility] [id number] [place] [phone] Marlin Edwards, RN Judy Pathology Technician Social History Tobacco Use Types Packs/Day Years Used Date Smoking Tobacco: Former Smokeless Tobacco: Never Alcohol Use Standard Drinks/Week Comments Not Currently 0 (1 standard drink = 0.6 oz pur e alcohol) Sex and Gender Information Value Date Recorded Sex Assigned at Not on file Legal Sex Male 6:34 AM 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 Patient had been experiencing chest pain and SOB. Stents 2016. Vitals and Assessment: Patient is speaking in clear and complete sentences and does not sound to be in any acute distress at this time. Alert and oriented and conversational. No coughing or wheezing noted throughout call. Breathing sounds even and unlabored. Plan: Discussed case with AP Ayden and ER MD Gil. Called patient to relay results and recommend ER evaluation. Verbalizes understanding and agreement of plan and will seek ER evaluation at this time. Instructed to call with any concerns. Note routed to primary care office pool to update/notify. Visit was completed by phone unless otherwise noted with video/screen capture within the note. Marlin Edwadrs RN [facility] Chart and note was reviewed by SAAD COLES and agree with plan of care. I consulted on this patient, agree with above documentation and plan. Melissa Gil MD documented in this encounter Plan of Treatment Upcoming Encounters Date Type Department Care Team (Late st Contact Info) Description 09/08/2025 8:00 AM CDT Office Visit [facility] Family Medicine [place] [address] [place] [phone] Kiana Miller FNP [address] [place] [phone] documented as of this encounter Visit Diagnoses Not on filedocumented in this encounter Care Teams Lathe Set Up Person Relationship Specialty Start Date End Date Amy Cisneros DO [address] [place] [phone] PCP - General Family Practice 08/28/23 documented as of this encounter
--- OUTSIDE RECORDS SUMMARY | 2024-11-12 06:24 | XMS_ITS | Encounter Summary ---
Author Organization [facility] Address [address] [place] [address] Care Team Providers Care Human Resources Associate Name Role Phone Unavailable Primary Care Provider Unavailabl e Encounter Details Date Type Department Care Team (Latest Contact Info) Description 12/01/2001 Outpatient Historical [facility] Gavin Parr MD [address] [place] [address] HYPERLIPIDEMIA NEC/NOS (Primary Dx); HELICOBACTER PYLORI INFECTION Social History Tobacco Use Types Packs/Day Years Used Date Smoking Tobacco: Never Assessed Sex and Gender Information Value Date Recorded Sex Assigned at Not on file Legal Sex Male 5:19 AM CORRESPONDENT Gender Identity Not on file Sexual Orientation Not on file documented as of this encounter Plan of Treatment Not on file documented as of this encounter Visit Diagnoses Diagnosis Other and unspecified hyperlipidemia- Primary Helicobacter pylori (H. pylori) documented in this encounter
--- OUTSIDE RECORDS SUMMARY | 2024-11-12 06:24 | XMS_ITS | Encounter Summary ---
Author Organization [facility] Address [address] [place] [address] Care Team Providers Care Bioinformatics Specialist Name Role Phone Unavailable Primary Care Provider Unavailabl e Encounter Details Date Type Department Care Team (Latest Contact Info) Description 01/18/2000 Outpatient Historical HIS [facility] Gavin Parr MD [address] [place] [phone] Enthesopathy of ankle and tarsus, unspecified (Primary Dx); Allergic rhinitis, cause unspecified Social History Tobacco Use Types Packs/Day Years Used Date Smoking Tobacco: Never Assessed Sex and Gender Information Value Date Recorded Sex Assigned at Not on file Legal Sex Male 5:19 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
--- OUTSIDE RECORDS SUMMARY | 2024-11-12 06:24 | XMS_ITS | Encounter Summary ---
Author Organization [facility] Address [address] [place] [address] Care Team Providers Care Custodian Blood Bank Name Role Phone Unavailable Primary Care Provider Unavailabl e Encounter Details Date Type Department Care Team (Latest Contact Info) Description 10/05/1999 Outpatient Historical HIS [facility] Gavin Parr MD [address] [place] [address] Pain in limb (Primary Dx); Nonallopathic lesion of lower extremities, not elsewhere classified Social History Tobacco Use Types Packs/Day Years Used Date Smoking Tobacco: Never Assessed Sex and Gender Information Value Date Recorded Sex Assigned at Not on file Legal Sex Male 5:19 AM DIETARY AID Gender Identity Not on file Sexual Orientation Not on file documented as of this encounter Plan of Treatment Not on file documented as of this encounter Visit Diagnoses Diagnosis Pain in limb- Primary Pain in soft tissues of limb Nonallopathic lesion of lower extremities, not elsewhere classified documented in this encounter
--- OUTSIDE RECORDS SUMMARY | 2024-11-12 06:24 | XMS_ITS | Encounter Summary ---
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
--- OUTSIDE RECORDS SUMMARY | 2024-11-12 06:24 | XMS_ITS | Encounter Summary ---
Author Organization [facility] Address [address] [place] [address] Care Team Providers Care Lighting Designer Name Role Phone Amy Cisneros Primary Care Provider Encounter Details Date Type Department Care Team (Late Contact Info) Description 11/11/2024 Orders Only [facility] [address] [place] [phone] Kiana Miller FNP [address] [place] [address] Social History Tobacco Use Types Packs/Day Years Used Date Smoking Tobacco: Former Smokeless Tobacco: Never Alcohol Use Standard Drinks/Week Comments Not Currently 0 (1 standard drink = 0.6 oz pur e alcohol) Sex and Gender Information Value Date Recorded Sex Assigned at Not on file Legal Sex Male 6:34 AM TOOL KEEPER Gender Identity Not on file Sexual Orientation Not on file documented as of this encounter Plan of Treatment Upcoming Encounters Date Type Department Care Team (Late st Contact Info) Description 09/08/2025 8:00 AM CDT Office Visit [facility] [address] [place] [phone] Kiana Miller FNP [address] [place] [phone] documented as of this encounter Results * (ABNORMAL) VA ECG ROUTINE ECG W/LEAST 12 LDS W/I&R (11/11/2024 3:40 PM CDT) Narrative [facility] - 11/11/2024 3:40 PM CDT Kiana Miller [...] no other findings Clinical impression: abnormal ECG us Kiana NASH ECG ORDERABLES Edited Res ult - Final [facility] CLIA# [id number] [address] [place] [address] documented in this encounter Visit Diagnoses Not on filedocumented in this encounter Care Teams Lighting Designer Relationship Specialty Start Date End Date Amy Cisneros DO [address] [place] [address] PCP - General Family Practice 08/28/23 documented as of this encounter
--- OUTSIDE RECORDS SUMMARY | 2024-11-12 06:24 | XMS_ITS | Encounter Summary ---
Author Organization [facility] Address [address] [place] [address] Care Team Providers Care Basket Person Name Role Phone Unavailable Primary Care Provider Unavailabl e Encounter Details Date Type Department Care Team (Latest Contact Info) Description 11/18/2001 Outpatient Historical HIS [facility] Gavin Parr MD [address] [place] [address] STOMACH FUNCTION DIS NEC (Primary Dx) Social History Tobacco Use Types Packs/Day Years Used Date Smoking Tobacco: Never Assessed Sex and Gender Information Value Date Recorded Sex Assigned at Not on file Legal Sex Male 5:19 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
--- OUTSIDE RECORDS SUMMARY | 2024-11-12 06:24 | XMS_ITS | Encounter Summary ---
Author Organization [facility] Address 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); Chronic neck pain Social History Tobacco Use Types Packs/Day Years Used Date Smoking Tobacco: Former Smokeless Tobacco: Never Alcohol Use Standard Drinks/Week Comments Not Currently 0 (1 standard drink = 0.6 oz pur e alcohol) Sex and Gender Information Value Date Recorded Sex Assigned at Not on file Legal Sex Male 6:34 AM MEDICINE AND HEALTH SERVICE MANAGER Gender Identity Not on file Sexual Orientation Not on file documented as of this encounter Miscellaneous Notes * Telephone Encounter - Ghislaine Garcia LPN - 11/05/2024 8:38 AM CDT 11/05/2024 8:38 AM I spoke with pt, he said this was last filled back in and was last filled by Dr. Talat Acharya. Pt says he was asked at his last appointment if he needed this filled but at the time he did not. Tramadol 50 mg take 1-2 tablets every 6 hours as needed for pain. Pt uses [facility]. Ghislaine CARDENAS * Telephone Encounter - Ghislaine Garcia LPN - 11/05/2024 8:35 AM CDT 8:35 AM 11/05/2024 Date of last visit addressing condition(s) being treated: 09/08/24 LFD on med list under historical provider Date of next visit in this department: 09/08/2025 Correct Pharmacy: Yes Recent Visits Date Type Provider Dept 09/08/24 Office Visit Kiana Miller FNP [facility] 03/10/24 Office Visit Kiana Miller FNP [facility] Showing recent visits within past 400 days with a meds authorizing provider and meeting all other requirements Future Appointments Date Type Provider Dept 09/08/25 Appointment Kiana Miller FNP [facility] Showing future appointments within next 400 days with a meds authorizing provider and meeting all other requirements Check and review of the [place] PDMP performed on 11/05/2024 at 8:37 AM.. pt found but no meds found on PDMP Ghislaine CARDENAS * Telephone Encounter - Barbie Burns - 11/05/2024 8:09 AM CDT Copied from [facility] #[id number]. Topic: Medication Request >> Nov 05, 2024 8:08 AM Barbie Sullivan wrote: Caller Name: Patient Callback Number: There are no phone numbers on file. Medication (Ask patient/caregiver to spell if possible): traMADoL (ULTRAM) 50 mg tablet Note: All medication prescriptions can be requested using one [facility] Preferred Pharmacy: [facility] - [place], [place] - [address] [facility] [address] Call Notes: Requesting refill Did caller contact the correct clinic for prescribing provider? Yes Ask caller if the refill is for a controlled medication. Is this for a controlled Medication? Yes Is there an encounter open? No documented in this encounter Plan of Treatment Upcoming Encounters Date Type Department Care Team ([facility] st Contact Info) Description 09/08/2025 8:00 AM CDT Office Visit [facility] Medicine [place] [address] [place] [phone] Kiana Miller FNP [address] [place] [phone] documented as of this encounter Visit Diagnoses Diagnosis Degeneration of intervertebral disc of cervicothoracic region- Primary Chronic neck pain Cervicalgia documented in this encounter Care Teams Actuary Relationship Specialty Start Date End Date Amy Cisneros DO [address] [place] [phone] PCP - General Family Practice 08/28/23 documented as of this encounter
--- OUTSIDE RECORDS SUMMARY | 2024-11-12 06:24 | XMS_ITS | Encounter Summary ---
Author Organization [facility] Address [address] [place] [address] Care Team Providers Care Miniature Set Constructor Name Role Phone Unavailable Primary Care Provider Unavailabl e Encounter Details Date Type Department Care Team (Latest Contact Info) Description 10/27/2002 Outpatient Historical HIS [facility] Rubén Blake MD [address] [place] [address] ALLERGIC RHINITIS NOS (Primary Dx); ACUTE BRONCHITIS Social History Tobacco Use Types Packs/Day Years Used Date Smoking Tobacco: Never Assessed Sex and Gender Information Value Date Recorded Sex Assigned at Not on file Legal Sex Male 5:19 AM DIAMOND DIE MAKER Gender Identity Not on file Sexual Orientation Not on file documented as of this encounter Plan of Treatment Not on file documented as of this encounter Visit Diagnoses Diagnosis Allergic rhinitis, cause unspecified- Primary Acute bronchitis documented in this encounter
--- NOTE | 2024-11-12 07:55 | PM.CONSULT ---
Providers/Reason For Consult Consulting Physician/Specialty*: Dr. AK. Jerome/cardiology Reason for Consult*: Patient with chest pain, previous history of coronary artery disease and PCI, elevated troponin T Requesting Physician: Dr Miller Attending Physician: Britany Adam MD Primary Care Provider: SAAD Salguero History of Present Illness History of Present Illness Can Astorga is a 64 year old male with a history of atherosclerotic heart disease, status post PCI of the left and descending artery in 2016, is presenting with complaints of chest pain. History of hypertension, dyslipidemia, degenerative joint disease This patient has a history of atherosclerotic heart diseas and had PCI of the left anterior descending artery in 2016. He had 2 drug-eluting stents at that time. Apparently he has been doing okay since then with no of any recurrence of chest pain. For the last few months, he been having chest pains off and on. Night before last, he woke up with chest pain in the upper substernal region, radiating across the chest. The patient lasted for 3 to 4 minutes and then subsided spontaneously. After that he went back to bed and felt okay. Yesterday morning, he was using the lawnmower. All of a sudden, he started having pain in the mid substernal region, radiating across the chest associate with shortness of breath nausea and sweating. The pain made her lasted for 5 minutes or so and then gradually subsided. Couple of hours later, he had another episode of similar chest pain this time, it lasted for 5 to 10 minutes and then gradually subsided. He was found to have an elevated blood pressure at home. So he went to his primary care provider for the elevated blood pressure. He had a blood test done in his office and was found to be abnormal. He was advised to come to the emergency room for further evaluation and management. His troponin I was found to be elevated. He had an initial troponin T of 258 with a 2-hour delta of 59 and a 6-hour delta of around 200. Currently at the time of examination, patient is pain-free. He denies any other complaints. No fevers, chills or cough. He has a history of high blood pressure and dyslipidemia. No diabetes. No severe peripheral artery disease. No history of chronic kidney disease, liver disease or bleeding disorders. He has been compliant with medications. Review of Systems Narrative: CONSTITUTIONAL: No fever or chills. [] EYES: No blurring of vision or other visual disturbances lately. [] ENT: No hoarseness of voice, auditory disturbances or sore throat. [] CARDIOVASCULAR: As mentioned above. [] RESPIRATORY: No significant cough. [] GASTROINTESTINAL: No hematemesis or melena. [] GENITOURINARY: No dysuria or hematuria. [] INTEGUMENTARY: No skin rashes or history of skin cancer. [] NEURO: No transient ischemic attacks or amaurosis. [] PSYCHIATRIC: No history of psychosis or major depression. [] HEMATOLOGIC: No bleeding disorders or significant anemia. [] ENDOCRINE: No history of polyuria or polydipsia. [] MUSCULOSKELETAL: No recent joint pain or swelling. [] ALLERGY/IMMUNOLOGY: As mentioned above. [] Medications/Allergies Home Medications ?Medication ?Instructions ?Recorded ?Confirmed ?Last Taken ?Type amlodipine 5 mg tablet 5 mg PO DAILY 08/03/19 11/12/24 11/11/24 History cyclobenzaprine 5 mg tablet 5 mg PO TID PRN muscle spasm #90 01/09/21 11/12/24 11/11/24 Rx tabs ezetimibe 10 mg tablet 10 mg PO ONCE 09/17/23 11/12/24 11/11/24 History losartan 50 mg tablet 50 mg PO ONCE 09/17/23 11/12/24 11/11/24 History acetaminophen 650 mg 650 mg PO Q12H 10/04/23 11/12/24 10/07/23 History tablet,extended release multivitamin 1 tab PO DAILY 10/04/23 11/12/24 11/11/24 History tramadol 50 mg tablet 50 mg PO TID PRN Pain 11/12/24 11/12/24 Unknown History Allergies Allergy/AdvReac Type Severity Reaction Status Date / Time Sitelqt-SLA-YpI Reductase Allergy Unknown Unknown Verified 11/11/24 18:49 Inhibitor (Vxkkyml-Uxu-Gfz Reductase Inhibitor) lisinopril Allergy Cough Verified 11/11/24 18:49 Current Medications Generic Name Dose Route Start Last Admin Trade Name Freq PRN Reason Stop Dose Admin Enoxaparin Sodium 90 mg 11/12/24 02:00 11/12/24 04:41 Enoxaparin 100 Mg/Ml Syringe 1 mg/kg (90 mg) Not Given SUBCUT Q12H JAKE Sodium Chloride 1,000 mls @ 75 mls/hr 11/12/24 01:30 11/12/24 02:28 Sodium Chloride 0.9% IV Not Given .[id number] JAKE PFSH Acute PFSH: Medical History ASHD (arteriosclerotic heart disease) HTN (hypertension) Hyperlipidemia Surgical History H/O inguinal hernia repair S/P PTCA (percutaneous transluminal coronary angioplasty) Family History Father Cancer CAD (coronary artery disease) Sister Hypertension Social History Smoking and tobacco/nicotine status: former use of tobacco/nicotine Household members: spouse Marital status: service: Yes branch: [employer] Vitals/I&O/Wt Last Vital Signs Temp 98.4 F 11/11/24 18:45 Pulse 74 11/12/24 04:00 Resp 8 L 11/12/24 04:00 BP 151/95 11/12/24 04:00 Pulse Ox 97 11/12/24 04:00 O2 Del Method Room Air 11/12/24 04:00 11/11/24 11/12/24 11/12/24 22:59 06:59 14:59 Intake Total 0 / 0 Balance 0 / 0 Weight last 48 hrs Weight 208 lb 8 oz Weight 208 lb 5 oz Weight 209 lb Physical Exam Narrative: GENERAL: The patient is alert and oriented times three. Not in any acute distress. HEENT: No significant pallor, icterus or lymphadenopathy.Oral cavity: There are no mucous membrane lesions. NECK: Trachea appears to be central. No masses noted. No JVD or thyromegaly appreciated. RESPIRATORY: Chest is symmetrical. No intercostals muscle retraction or any accessory muscle activation. There is no chest wall tenderness. Breath sounds are heard bilaterally. No rales or rhonchi heard. No evidence of any consolidation. BREASTS: Deferred. HEART: The heart sounds are normal. No S3 or S4. No significant murmurs. No pericardial rub ABDOMEN: No vessel pulsations or distention. No tenderness. No organomegaly appreciated. Bowel sounds are normally heard. : Deferred. RECTAL: Deferred. LYMPHATIC: No lymphadenopathy noted in the neck. EXTREMITIES: No edema or cyanosis. No clubbing. MUSCULOSKELETAL: No acute joint deformities or swelling SKIN: There are no significant rashes or ecchymosis NEUROPSYCHIATRIC: The patient is alert and oriented x3. Appears to be in a good mood. No tremors or rigidity noted. Data 11/12/24 00:35 11/12/24 00:35 Other Labs: Laboratory Last Values WBC 9.02 10^3/uL (3.29-11.43) 11/12/24 00:35 RBC 5.23 10^6/uL (3.85-5.65) 11/12/24 00:35 Hgb 16.00 g/dL (11.27-16.99) 11/12/24 00:35 Hct 46.5 % (37-53) 11/12/24 00:35 MCV 88.9 fl (82-101) 11/12/24 00:35 MCH 30.6 pg (27-33) 11/12/24 00:35 MCHC 34.4 g/dL (30-55) 11/12/24 00:35 RDW 12.4 % (12.1-15.1) 11/12/24 00:35 Plt Count 182 10^3/cmm (157-399) 11/12/24 00:35 MPV 9.5 fL (7.4-10.4) 11/12/24 00:35 Neut % (Auto) 58.0 % 11/12/24 00:35 Lymph % (Auto) 30.8 % 11/12/24 00:35 Newton % (Auto) 6.2 % 11/12/24 00:35 Eos % (Auto) 4.0 % 11/12/24 00:35 Baso % (Auto) 0.9 % 11/12/24 00:35 Neut # (Auto) 5.23 10^3/uL (1.8-7.7) 11/12/24 00:35 Lymph # (Auto) 2.8 10^3/uL (0.8-4.8) 11/12/24 00:35 Newton # (Auto) 0.6 10^3/uL (0.2-0.9) 11/12/24 00:35 Eos # (Auto) 0.4 10^3/uL (0.0-0.8) 11/12/24 00:35 Baso # (Auto) 0.1 10^3/uL (0.0-0.1) 11/12/24 00:35 Nucleated RBC % (auto) 0 % 11/12/24 00:35 Nucleated RBCs # 0.0 /100WBC 11/12/24 00:35 PT 13.00 SECONDS (12.1-14.9) 11/11/24 18:57 INR 0.91 (0.8-1.2) 11/11/24 18:57 Sodium 140 mmol/L (136-145) 11/12/24 00:35 Potassium 3.9 mmol/L (3.5-5.1) 11/12/24 00:35 Chloride 102 mmol/L (98-107) 11/12/24 00:35 Carbon Dioxide 27 mmol/L (22-29) 11/12/24 00:35 Anion Gap 14.9 (5-19) 11/12/24 00:35 BUN 13 mg/dL (8-23) 11/12/24 00:35 Creatinine 0.8 mg/dL (0.7-1.2) 11/12/24 00:35 GFR Calculation 96.7 mL/min (90-130) 11/12/24 00:35 Glucose 133 mg/dL (65-115) H 11/12/24 00:35 Calculated Osmolality 292 mOsm/kg (285-295) 11/12/24 00:35 Calcium 9.2 mg/dL (8.5-10.5) 11/12/24 00:35 Phosphorus 2.7 mg/dL (2.5-4.5) 11/12/24 00:35 Magnesium 2.0 mg/dL (1.7-2.3) 11/12/24 00:35 Total Bilirubin 0.4 mg/dL (0.15-1.2) 11/12/24 00:35 AST 38 U/L (0-40) 11/12/24 00:35 ALT 35 U/L (0-41) 11/12/24 00:35 Alkaline Phosphatase 76 U/L (40-130) 11/12/24 00:35 Troponin T Baseline 258 ng/L (0-15) H* 11/11/24 18:57 Troponin T 120 Minute 317.1 ng/L (0-15) H 11/11/24 20:40 Delta Troponin T 59.1 ABS# (0-10) H* 11/11/24 20:40 Troponin T Hi Sens 6Hr 458.7 ng/L (0-15) H 11/12/24 00:35 Troponin T Hi Sens 6Hr Delta 200.7 ng/L (0-12) H* 11/12/24 00:35 Total Protein 6.4 g/dL (6.6-8.7) L 11/12/24 00:35 Albumin 4.0 g/dL (3.5-5.2) 11/12/24 00:35 Globulin 2.4 g/dL (1.3-4.6) 11/12/24 00:35 Lipase 46 U/L (13-60) 11/11/24 18:57 A&P Assessment and plan (1) Non-ST elevated myocardial infarction: The patients clinical features are consistent with a non-ST elevation myocardial infarction. Hemodynamic seems to be stable. May continue on the subcu Lovenox. Patient was given a loading dose of Plavix yesterday. Continue the maintenance Plavix today. May continue other medications as at this (2) Accelerated hypertension: The blood pressure seems to be coming down.Need to optimize the antihypertensive medications (3) Atherosclerotic heart disease of [place] coronary artery with unstable angina pectoris: Patient had a PCI of the Left anterior descending artery In 2016. Patient may benefit from a repeat cardiac catheterization to reevaluate the coronary status and decide on further management. (4) Hyperlipidemia: May continue on the current medications. Plan .In view of the upward trending of the troponin T,It might be appropriate to do an early cardiac catheterization to evaluate the coronary status and decide on further management. The risk and benefits of this approach were discussed with the patient. The risk of bleeding, hematoma, vascular injury, myocardial infarction, myocardial perforation, malignant cardiac arrhythmias ,CVA, renal failure and other concomitant complications were explained in detail. . Patient understood this well and consented to proceed. Thank you for the opportunity to evaluate this patient and make these recommendations PDMP PDMP Reviewed: Not Reviewed Coding Level of Care Code 80950 Diagnoses Non-ST elevated myocardial infarction I21.4 Accelerated hypertension I10 Atherosclerosis of [place] coronary artery of [place] heart with unstable angina pectoris I25.110 [place] vs. transplanted heart: [place] heart Mixed hyperlipidemia E78.2 Hyperlipidemia type: mixed hyperlipidemia
[2024-11-12] MEDS: pantoprazole DR 40 mg Tablet PO (08:03)
--- NOTE | 2024-11-12 10:25 | XACV_ITS ---
Exam Room: [facility] Ht: 188 cm Wt: 94 kg BSA: 2.23 m2 Gender: Male : 1960 Performing Physician(s): Dr. Cruz Any Known Allergies: Other Exam Priority: Routine Procedure(s): Procedure Description: Diagnostic procedure Procedure Description: PCI procedure Procedure Description: Left Heart Catheterization Procedure Description: Drug Eluting Coronary Stent Procedure Description: PTCA Procedure Description: Miscellaneous Procedure Description: ACT Procedure Description: Coronary Angiography Justus MESA; Diagnostic Cath Status: Urgent Diagnostic Findings * LM: Normal. * LAD: Large size vessel. 40-50% ISR in mid LAD. distal vessel minor irregularities. * LCx: Good size vessel. Minor irregularities. OM1 large vessel 70% stenosis in proximal segment. * RCA. Lareg dominant vessel. Proximal 95% plaque rupture lesion. Mid 80% stenosis. The segment beween proximal and mid vessel stenosis is modetaley diffuse diseased. * Summary: Severe prox-mid RAC stenosis. Proximal RCA culprit for current NSTEMI. OM1 70% chronic stenosis. LAD mid vessel 50% ISR. PCI Status: Urgent PCI LVEF Assessed: Yes PCI Indication: NSTE - ACS Interventional Findings * Successful PCI of RCA with two overlapping SONNY (3.5x34 and 3.5 x15). Post stent dilatation with 3.75 NC balloon up to 16 jose cruz. Conclusions 1. Severe prox-mid RCA stenosis. 70% stenosis in proximal OM1. 50% ISR mid LAD. Recommendations * PCI of Pro-mid RCA with SONNY. Interventional RX Recommendation: PCI w/o planned CABG Diagnostic RX Recommendation: PCI w/o planned CABG Anticoagulation: Heparin LV EDP: 15 mmHg Ventriculography Ejection Fraction: 65.0 % Left Ventriculography Findings: * Normal left ventricular Empty. Pressures Phase:Rest AO : 110 / 89 ( 100 ) @ 12:31:00 PM 158 / 97 ( 125 ) @ 12:40:00 PM 147 / 88 ( 114 ) @ 12:40:00 PM 154 / 89 ( 117 ) @ 12:49:00 PM LV : 99 / 26 / 23 @ 12:38:00 PM 155 / 6 / 15 @ 12:39:00 PM 157 / 0 / 16 @ 12:40:00 PM Valves Phase:DefaultPhase AV : 0.0 @ 12:23:08 PM AV Mean Gradient: 0.0 @ 12:23:08 PM Clinical Evaluation EBL: 5mL-10mL Procedural Details Procedure Consent Obtained. Pre-Procedure Time Out. Identified patient by full name and date of as verbalized by the patient/guarantor. Does the consent match the physician's order: Yes. Accurate & Complete Informed Consent: Yes. Inpatient/Outpatient History & Physical on Chart: Yes. If H&P is completed, is and addenduem needed: No; If yes, is the addendum complete: N/A. Visualize and Verify Site with Patient/Guarantor: N/A. Relevant Radiology Images available: Yes. Pre-op teaching completed and patient verbalized understanding. The risks, benefits, and alternatives of sedation and/or procedure were discussed by physician. The patient agrees to continue. Procedure started. [facility] Clinical Fraility Score: 3: Managing Well. Greens Laborer Indications: Other, nstemi. Chest Pain Symptom Assessment: Typical Angina Symptoms. Cardiovascular Instability: No. Correct patient, site and procedure confirmed by cath team. PERRLA. Strong, equal hand guide escort bilaterally. Lungs clear x 5 lobes. IV Site on Arrival: 20 gauge in the right anticubital. IV Fluids: 0.9% NaCl at KVO. 500 mL infused prior to label stitcher. Oxygen started at 2liters/min via nasal canula. right groin was prepped with chloroprep then draped in the usual sterile fashion. right radial was prepped with chloroprep then draped in the usual sterile fashion. Baseline sample Acquired. HR: 100 BPM. Physician notified. Physician arrived. Equipment: 6F - Radial. Cardiac Cath Pack. ACIST Manifold Kit Model BT 2000. Heparinized Saline (2 units/mL), 1000 mL bag. Physician scrubbed in. Immediate Pre-Procedure Time Out. Correct Patient: Yes; Correct Procedure: Yes; Correct Site: Yes; Correct Patient Position: Yes; Correct Supplies: Yes; Dried Flammable Prep: Yes; Blood Products Available: N/A;. Lidocaine 1% infiltrated to the right radial. Arterial access obtained. A 5 palauan JL3.5 catheter in over wire. Multiple views taken of left coronary artery. Catheter removed over the exchange wire. A 5 palauan JR4 catheter in over wire. EDP Sample taken: LV 99/26,23; HR: 92 BPM; SpO2: 97%. EDP Sample taken: LV 155/6,15; HR: 90 BPM; SpO2: 98%. Hand injection through JR4 catheter. Pullback taken: LV 157/0,16; AO 158/97(125); Mean: 0mmHg, Peak to Peak: 0mmHg, SEP: 8sec/min; HR: 102 BPM; SpO2: 98%. Multiple views taken of right coronary artery. Inventory is JR4 guide. 6 palauan JR 4 guide catheter was inserted over the wire. Runthrough guidewire was advanced through the guide catheter to lesion in the mid RCA. Inflation number : 1 A AB TREK 2.50X15 RX BALLOON was prepped and advanced across the Mid RCA , then inflated to 12 JOSE CRUZ for 0:10 seconds. Inflation number: 2 The AB TREK 2.50X15 RX BALLOON was reinflated across the Mid RCA, to 8 JOSE CRUZ for 0:09 seconds. Inflation number: 1 The AB TREK 2.50X15 RX BALLOON was reinflated across the Prox RCA, to 10 JOSE CRUZ for 0:09 seconds. Balloon out. Inflation Number : 3 Violet Henderson GURU 3.5X34 SONNY -Lot Number# [id number] exp date 11/04/2026 was prepped and advanced across the Mid RCA. The stent was deployed at 12 JOSE CRUZ for 0:18 seconds. Inflation number: 4 The stent balloon was then re-inflated across the Mid RCA to 12 JOSE CRUZ for 0:09 seconds. Stent balloon out over wire. Results checked. ACT drawn. Results out of range high seconds. Therapeutic limits - pre-heparin administration 90-150 seconds and monitoring heparin during a vascular procedure >250 seconds. Inflation Number : 2 A MDT R GURU 3.5X15 SONNY -Lot Number# [id number] exp date 10/30/26 was prepped and advanced across the Prox RCA. The stent was deployed at 16 JOSE CRUZ for 0:16 seconds. Inflation number: 3 The stent balloon was then re-inflated across the Prox RCA to 10 JOSE CRUZ for 0:05 seconds. Stent balloon out over wire. Results checked. Inflation number : 5 A MDT NC EUPHORA RX 3.09M92HH BALLOON was prepped and advanced across the Mid RCA , then inflated to 16 JOSE CRUZ for 0:16 seconds. Inflation number: 6 The MDT NC EUPHORA RX 3.22O51UW BALLOON was reinflated across the Mid RCA, to 17 JOSE CRUZ for 0:18 seconds. Inflation number: 7 The MDT NC EUPHORA RX 3.47K05GD BALLOON was reinflated across the Mid RCA, to 18 JOSE CRUZ for 0:17 seconds. Balloon out. Wire out. Guide catheter out. ACT drawn. Results 268 seconds. Therapeutic limits - pre-heparin administration 90-150 seconds and monitoring heparin during a vascular procedure >250 seconds. Physician scrubbed out. A TR Band was successful obtaining hemostatsis at the Right Radial artery insertion site. TR band placed. Hemostasis obtained. Post Procedure: Pulses reassessed and unchanged. PERRLA. Strong, equal hand guide escort bilaterally. No VTE prophylaxis required. Contrast type used: Visipaque 320 mgI/mL, 500 mL bottle. Post-op diagnosis: nstemi. Complications: none. Estimated blood loss: 5mL-10mL. Responsiveness - Normal response to verbal stimuli; alert and oriented, PERRLA. Airway - Unaffected, no intervention required; spontaneous ventilation. Medication's Wasted: Lidocaine 1% = 18 mL. Medication's Wasted: Nitro = 49.7 mg. Medication's Wasted: Heparin = 1000 units. Medication's Wasted: Other = fentanyl 25 mcg. Medication's Wasted: Other = versed 1 mg. Total IV fluids: 50 mL. Circulation: W/N/L, pulses unchanged. Nausea/Vomiting: No. Procedure completed. Patient transferred by bed to 1st floor. Vital chart was stopped. Access Site Site: Right Radial artery Sheath Size: 6 Fr Hemostasis Method: TR Band Hemostasis Success: Successful Complication Findings: NONE. Procedure Medications Start: 11:11 AM Stop: : AM Medication: Benadryl Amount: 50 mg Route: I.V. Start: 11: AM Stop: AM Medication: Zofran (ondansetron) Amount: 4 mg Route: I.V. Start: 11: AM Stop: : AM Medication: Versed Amount: 1 mg Route: I.V. Start: 11: AM Stop: : AM Medication: Fentanyl Amount: 50 mcg Route: I.V. Start: 11:29 AM Stop: : AM Medication: Nitrogylcerin Start: 11:30 AM Stop: 11:30 AM Medication: Versed Amount: 1 mg Route: I.V. Start: 11:30 AM Stop: : AM Medication: Heparin Amount: 5000 units Route: I.V. Start: 11:44 AM Stop: 11:44 AM Medication: Heparin Amount: 5000 units Route: I.V. Start: 12:00 PM Stop: 12:00 PM Medication: Versed Amount: 1 mg Route: I.V. Start: 12:02 PM Stop: 12:02 PM Medication: Fentanyl Amount: 25 mcg Route: I.V. Start: 12:10 PM Stop: 12:10 PM Medication: Nitrogylcerin Amount: 100 mcg Route: I.C. Start: 12:14 PM Stop: 12:14 PM Medication: Zofran (ondansetron) Amount: 4 mg Route: I.V. Start: 12:15 PM Stop: 12:15 PM Medication: Plavix Amount: 300 mg Route: P.O. I, the attending physician, have reviewed and verified all procedure medications. Yes, all medications given per verbal order History/Risk Factors Hypertension: Yes Dyslipidemia: No Peripheral Arterial Disease (PAD): No Myocardial Infarction (PA): No Obesity: No Renal Disease: No Tobacco Use: Former Prior Interventions PCI: Yes CABG: No Valve Surgery: No Date of PCI: 01/12/2016 Report Signatures Finalized by Delmy Cruz MD on 11/12/2024 01:51 PM
--- NOTE | 2024-11-12 13:40 | PC.NURSE ---
Patient received to the floor from car barn laborer at 1229. Patient is s/p [facility] with right radial access and TR band in place. No s/s of bleeding or hematoma formation observed. Instructed patient on site care and restrictions. Patient verbalized complete understanding.
--- NOTE | 2024-11-12 14:02 | P.PN_ITS ---
Subjective 2 Subjective: Seen this morning. Patient was admitted overnight for chest pain and NSTEMI. He is awaiting to go for coronary angiogram today. Patient received therapeutic Lovenox overnight and had aspirin in the ER. Vitals/I&O/Wt Last Vital Signs Temp 97.7 F 11/12/24 12:29 Pulse 90 11/12/24 13:59 Resp 18 11/12/24 12:29 BP 142/93 11/12/24 12:29 Pulse Ox 92 11/12/24 12:29 O2 Del Method Room Air 11/12/24 12:29 11/11/24 11/12/24 11/12/24 22:59 06:59 14:59 Intake Total 0 / 0 800 / 800 Balance 0 / 0 800 / 800 Weight last 48 hrs Weight 94.574 kg Weight 94.489 kg Weight 94.801 kg Physical Exam 2 Narrative: Generally patient looks well in no apparent distress at my evaluation. Patient denies any chest pain at this time. HEENT normocephalic/atraumatic neck neck is supple cardiovascular heart is regular lungs are pretty much clear abdomen soft nontender nondistended unremarkable extremities are intact no edema has good pulses neurology there is no focality lab studies lab studies reviewed and noted. Data 11/12/24 00:35 11/12/24 00:35 A&P Assessment and plan (1) Chest pain: Cardiac chest pains - Patient is with NSTEMI, admitted to stepdown unit - Patient had received 300 mg of Plavix and full aspirin in the emergency room - Follow-up with Plavix 75 mg once daily till workup is completed - Patient on telemetry in stepdown location - N.p.o. after midnight to anticipate cardiac catheterization tomorrow 11/12/2024 - Gentle hydration (2) Non-ST elevated myocardial infarction: Antiplatelets and anticoagulant be continued Cardiology on consult Continue to keep patient n.p.o. after midnight for possible cardiac catheterization (3) ASHD (arteriosclerotic heart disease): Continue care as indicated of CAD (4) HTN (hypertension): Patient is normotensive blood pressure is controlled on her patient antihypertensive medication with amlodipine (5) Hyperlipidemia: Continue nonstatin medication patient is allergic to statins. Plan GI and DVT prophylaxis in place 11/12/2024 NSTEMI Going to District Sales Manager today Placed on aspirin Plavix atorvastatin Patient allergic to atorvastatin. Once okay with cardiology start beta-fortino Continue losartan 50 Stop therapeutic Lovenox once cord angiogram is complete. Further management to be decided after results of coronary angiogram today. Patient is chest pain free at this time. PDMP PDMP Reviewed: Not Reviewed Attestations 2 Medical Necessity Statement*: Patient is NSTEMI and deserves to have at least 2 midnights stay in the hospital for further optimization of care Diagnoses Chest pain R07.9 Non-ST elevated myocardial infarction I21.4 ASHD (arteriosclerotic heart disease) I25.10 Primary hypertension I10 Hypertension type: primary hypertension Mixed hyperlipidemia E78.2 Hyperlipidemia type: mixed hyperlipidemia
--- NOTE | 2024-11-12 16:19 | PC.NURSE ---
Initiated TR band removal per protocol at 1335 removing 1-2ml of air every 15-20min until band removed at this time. No s/s of bleeding or hematoma formation observed. Patient denies pain to site. Covered site with 2x2 and coban. Instructed patient on site care with restrictions. Patient verbalized complete understanding. Patient has been up ambulating in the wallace stating, I feel much better now. No distress observed. Snack provided.
[2024-11-13] VITALS: BP 123/74; PULSE 68; RESP 10; TEMP 37; O2SAT 97
[2024-11-13 04:00] VITALS: BP 137/85; PULSE 65; RESP 14; TEMP 37.1; O2SAT 94
[2024-11-13] MEDS: acetaminophen 325 mg Tablet 650 MG PO (04:17)
[2024-11-13 05:03] LABS: Basophils # 0.1 10^3/uL (0.0-0.1); Basophils % 0.9 %; Eosinophils # 0.4 10^3/uL (0.0-0.8); Eosinophils % 4.7 %; Hematocrit 43.1 % (37-53); Lymphocytes # 1.9 10^3/uL (0.8-4.8); Lymphocytes % 23.9 %; Mean Corpuscular Hemoglobin 30.6 pg (27-33); Mean Corpuscular Volume 87.2 fl (82-101); Mean Platelet Volume 9.4 fL (7.4-10.4); Monocytes # 0.6 10^3/uL (0.2-0.9); Monocytes % 7.7 %; Neutrophils # 4.98 10^3/uL (1.8-7.7); Neutrophils % 62.5 %; Nucleated Red Blood Cells % 0 %; Platelet Count 174 10^3/cmm (157-399); Red Blood Count 4.94 10^6/uL (3.85-5.65); Red Cell Distribution Width 12.6 % (12.1-15.1); White Blood Count 7.95 10^3/uL (3.29-11.43)
[2024-11-13 05:34] LABS: Alanine Aminotransferase 28 U/L (0-41); Albumin Level 3.7 g/dL (3.5-5.2); Alkaline Phosphatase 70 U/L (40-130); Aspartate Amino Transferase 26 U/L (0-40); Blood Urea Nitrogen 16 mg/dL (8-23); Calcium 8.7 mg/dL (8.5-10.5); Carbon Dioxide 24 mmol/L (22-29); Chloride 105 mmol/L (98-107); Creatinine Clr Calc Pharmacy 99.3774; Glomerular Filtration Rate 84.4 mL/min (90-130); Glucose 92 mg/dL (65-115); Osmolality Calculated 291 mOsm/kg (285-295); Sodium 140 mmol/L (136-145); Total Bilirubin 0.4 mg/dL (0.15-1.2); Total Protein 5.7 g/dL (6.6-8.7)
[2024-11-13 05:39] LABS: Anion Gap 15.2 (5-19); Potassium 4.2 mmol/L (3.5-5.1)
[2024-11-13 07:47] VITALS: BP 127/85; PULSE 62; RESP 18; TEMP 36.5; O2SAT 94
--- NOTE | 2024-11-13 07:49 | P.PN_ITS ---
Subjective 2 Subjective: The patient underwent a cardiac catheterization yesterday. He was found to have a high-grade lesion of the proximal and mid RCA for which he underwent PCI by Dr. Cruz. Since intervention patient has been doing okay with no chest pain or any specific cardiac symptoms. The vital signs are remaining stable. Medications: Medication Review Details: Current Medications Acetaminophen (Acetaminophen 325 Mg Tablet) 650 mg PO Q6H PRN PRN Reason: Mild/Mod Pain Or Temp >/= 101 Last Admin: 11/13/24 04:17 Dose: 650 mg Aspirin (Aspirin 81 Mg Ec Tablet) 81 mg PO DAILY [facility] Clopidogrel Bisulfate (Clopidogrel 75 Mg Tablet) 75 mg PO DAILY [facility] Docusate Sodium (Docusate Sodium 100 Mg Capsule) 100 mg PO BID [facility] Last Admin: 11/12/24 16:21 Dose: Not Given Morphine Sulfate (Morphine 4 Mg/Ml Sdv 1 Ml) 2 mg IVP Q4H PRN PRN Reason: SEVERE PAIN Ondansetron HCl (Ondansetron 2 Mg/Ml Sdv 2 Ml) 4 mg IVP Q8H PRN PRN Reason: vomiting, or N/V if npo Pantoprazole Sodium (Pantoprazole Dr 40 Mg Tablet) 40 mg PO DAILY [facility] Last Admin: 11/12/24 08:03 Dose: 40 mg Senna (Sennosides 8.6 Mg Tablet) 17.2 mg PO BEDTIME [facility] Last Admin: 11/12/24 20:43 Dose: Not Given Vitals/I&O/Wt Last Vital Signs Temp 97.7 F 11/13/24 07:47 Pulse 62 11/13/24 07:47 Resp 18 11/13/24 07:47 BP 127/85 11/13/24 07:47 Pulse Ox 94 11/13/24 07:47 O2 Del Method Room Air 11/13/24 07:47 11/12/24 11/13/24 11/13/24 22:59 06:59 14:59 Intake Total 440 / 1480 120 / 1600 Balance 440 / 1480 120 / 1600 Weight last 48 hrs Weight 207 lb 12.8 oz Weight 208 lb 8 oz Weight 208 lb 5 oz Weight 209 lb Physical Exam 2 Narrative: GENERAL: The patient is alert and oriented times three. Not in any acute distress. HEENT: No significant pallor, icterus or lymphadenopathy.Oral cavity: There are no mucous membrane lesions. NECK: Trachea appears to be central. No masses noted. No JVD or thyromegaly appreciated. RESPIRATORY: Chest is symmetrical. No intercostals muscle retraction or any accessory muscle activation. There is no chest wall tenderness. Breath sounds are heard bilaterally. No rales or rhonchi heard. No evidence of any consolidation. BREASTS: Deferred. HEART: The heart sounds are normal. No S3 or S4. No significant murmurs. No pericardial rub ABDOMEN: No vessel pulsations or distention. No tenderness. No organomegaly appreciated. Bowel sounds are normally heard. : Deferred. RECTAL: Deferred. LYMPHATIC: No lymphadenopathy noted in the neck. EXTREMITIES: No edema or cyanosis. No clubbing. The radial arterial puncture site has no hematoma or bleeding. Good distal pulses MUSCULOSKELETAL: No acute joint deformities or swelling SKIN: There are no significant rashes or ecchymosis NEUROPSYCHIATRIC: The patient is alert and oriented x3. Appears to be in a good mood. No tremors or rigidity noted. Data 11/13/24 04:07 11/13/24 04:07 Other Labs: Laboratory Last Values WBC 7.95 10^3/uL (3.29-11.43) 11/13/24 04:07 RBC 4.94 10^6/uL (3.85-5.65) 11/13/24 04:07 Hgb 15.10 g/dL (11.27-16.99) 11/13/24 04:07 Hct 43.1 % (37-53) 11/13/24 04:07 MCV 87.2 fl (82-101) 11/13/24 04:07 MCH 30.6 pg (27-33) 11/13/24 04:07 MCHC 35.0 g/dL (30-55) 11/13/24 04:07 RDW 12.6 % (12.1-15.1) 11/13/24 04:07 Plt Count 174 10^3/cmm (157-399) 11/13/24 04:07 MPV 9.4 fL (7.4-10.4) 11/13/24 04:07 Neut % (Auto) 62.5 % 11/13/24 04:07 Lymph % (Auto) 23.9 % 11/13/24 04:07 [place] % (Auto) 7.7 % 11/13/24 04:07 Eos % (Auto) 4.7 % 11/13/24 04:07 Baso % (Auto) 0.9 % 11/13/24 04:07 Neut # (Auto) 4.98 10^3/uL (1.8-7.7) 11/13/24 04:07 Lymph # (Auto) 1.9 10^3/uL (0.8-4.8) 11/13/24 04:07 [place] # (Auto) 0.6 10^3/uL (0.2-0.9) 11/13/24 04:07 Eos # (Auto) 0.4 10^3/uL (0.0-0.8) 11/13/24 04:07 Baso # (Auto) 0.1 10^3/uL (0.0-0.1) 11/13/24 04:07 Nucleated RBC % (auto) 0 % 11/13/24 04:07 Nucleated RBCs # 0.0 /100WBC 11/13/24 04:07 PT 13.00 SECONDS (12.1-14.9) 11/11/24 18:57 INR 0.91 (0.8-1.2) 11/11/24 18:57 Sodium 140 mmol/L (136-145) 11/13/24 04:07 Potassium 4.2 mmol/L (3.5-5.1) 11/13/24 04:07 Chloride 105 mmol/L (98-107) 11/13/24 04:07 Carbon Dioxide 24 mmol/L (22-29) 11/13/24 04:07 Anion Gap 15.2 (5-19) 11/13/24 04:07 BUN 16 mg/dL (8-23) 11/13/24 04:07 Creatinine 0.9 mg/dL (0.7-1.2) 11/13/24 04:07 GFR Calculation 84.4 mL/min (90-130) L 11/13/24 04:07 Glucose 92 mg/dL (65-115) 11/13/24 04:07 Calculated Osmolality 291 mOsm/kg (285-295) 11/13/24 04:07 Calcium 8.7 mg/dL (8.5-10.5) 11/13/24 04:07 Phosphorus 2.7 mg/dL (2.5-4.5) 11/12/24 00:35 Magnesium 2.0 mg/dL (1.7-2.3) 11/13/24 04:07 Total Bilirubin 0.4 mg/dL (0.15-1.2) 11/13/24 04:07 AST 26 U/L (0-40) 11/13/24 04:07 ALT 28 U/L (0-41) 11/13/24 04:07 Alkaline Phosphatase 70 U/L (40-130) 11/13/24 04:07 Troponin T Baseline 258 ng/L (0-15) H* 11/11/24 18:57 Troponin T 120 Minute 317.1 ng/L (0-15) H 11/11/24 20:40 Delta Troponin T 59.1 ABS# (0-10) H* 11/11/24 20:40 Troponin T Hi Sens 6Hr 458.7 ng/L (0-15) H 11/12/24 00:35 Troponin T Hi Sens 6Hr Delta 200.7 ng/L (0-12) H* 11/12/24 00:35 Total Protein 5.7 g/dL (6.6-8.7) L 11/13/24 04:07 Albumin 3.7 g/dL (3.5-5.2) 11/13/24 04:07 Globulin 2.0 g/dL (1.3-4.6) 11/13/24 04:07 Lipase 46 U/L (13-60) 11/11/24 18:57 A&P Assessment and plan (1) Non-ST elevated myocardial infarction: Patient status post categorization, status post PCI of the RCA lesions, currently remaining stable. (2) Accelerated hypertension: Currently normotensive. May continue on the current medications (3) Atherosclerotic heart disease of [place] coronary artery with unstable angina pectoris: The stent in the LAD was found to be patent. High-grade lesions in the proximal to mid RCA for which he underwent PCI. Currently seems to be stable. (4) Hyperlipidemia: May continue on the current medications. Plan The patient's overall cardiovascular status seems to be stable. He may continue on the current medications for the time being. Lipid profile on the blood in the lab. May need to consider Repatha as outpatient. May be started on metoprolol 12.5 mg p.o. twice daily Losartan 25 mg p.o. daily Appointment the [facility] in a week to see the nurse practitioner Appointment with me in the office in 1 month PDMP PDMP Reviewed: Not Reviewed Attestations 2 Medical Necessity Statement*: Possible discharge home today . Coding Level of Care Code 73149 Diagnoses Non-ST elevated myocardial infarction I21.4 Accelerated hypertension I10 Atherosclerosis of [place] coronary artery of [place] heart with unstable angina pectoris I25.110 [place] vs. transplanted heart: [place] heart Mixed hyperlipidemia E78.2 Hyperlipidemia type: mixed hyperlipidemia
--- NOTE | 2024-11-13 09:11 | PC.SOCIAL ---
IMM Update Pg 2 of IMM updated and reviewed with patient, who verbalized understanding. Copy provided at bedside.
[2024-11-13] MEDS: pantoprazole DR 40 mg Tablet PO (09:41)
[2024-11-13] MEDS: docusate sodium 100 mg Capsule PO (09:41)
[2024-11-13] MEDS: aspirin 81 mg EC Tablet PO (09:41)
[2024-11-13] MEDS: clopidogrel 75 mg Tablet PO (09:41)
[2024-11-13 11:02] LABS: Chol HDL Ratio 3.86 mg/dL (1.0-5.00); Cholesterol 143 mg/dL (0-200); HDL Cholesterol 37 mg/dL (60-100); LDL Cholesterol Calculated 70 mg/dL (50-129); LDL HDL Ratio 1.89 RATIO (0.00-3.22); Triglycerides 179 mg/dL (0-150)
--- NOTE | 2024-11-13 11:50 | P.DS_ITS ---
Discharge Providers Date of Admission: 11/12/24 00:08 Date of Discharge: November 13, 2024 Attending Provider at Admission: Britany Adam MD Attending Provider at Discharge: Clementina David MD Primary Care Provider: SAAD Salguero Diagnoses at Discharge Discharge Diagnosis (1) Non-ST elevated myocardial infarction: Status: Resolved (2) Accelerated hypertension: Status: Acute (3) Atherosclerotic heart disease of [place] coronary artery with unstable angina pectoris: Status: Acute Qualifiers: [place] vs. transplanted heart: [place] heart Qualified Code(s): I25.110 - Atherosclerotic heart disease of [place] coronary artery with unstable angina pectoris (4) Hyperlipidemia: Status: Acute Qualifiers: Hyperlipidemia type: mixed hyperlipidemia Qualified Code(s): E78.2 - Mixed hyperlipidemia Reason for Visit Reason for Visit: leesa sent for elevated triponin Hospital Course Hospital Course Patient presented to the hospital with chest pain and was diagnosed with NSTEMI. He underwent coronary angiogram with successful PCI of RCA with 2 overlapping drug-eluting stents. Patient was monitored in the hospital postprocedure and discharged home the next day in stable condition. Aspirin Plavix metoprolol tartrate pantoprazole given. Patient has to follow-up with primary care doctor and cardiology outpatient. Physical Exam Narrative: Generally patient looks well in no apparent distress at my evaluation. Patient denies any chest pain at this time. HEENT normocephalic/atraumatic neck neck is supple cardiovascular heart is regular lungs are pretty much clear abdomen soft nontender nondistended unremarkable extremities are intact no edema has good pulses neurology there is no focality lab studies lab studies reviewed and noted. Discharge Data Studies Completed and Pending Completed Studies During Hospitalization Category Date Time Status BOAT HOP request for service Routine Exams 11/12/24 10:25 Completed XR chest 1V portable [id number] Stat Exams 11/11/24 18:38 Completed Pending at discharge Category Date Time Status CV. echo complete* [id number] Stat Ultrasound 11/11/24 20:23 Taken Radiology Impressions Chest X-Ray 11/11/24 18:38 IMPRESSION: No acute findings. Laboratory Results WBC 7.95 10^3/uL (3.29-11.43) 11/13/24 04:07 RBC 4.94 10^6/uL (3.85-5.65) 11/13/24 04:07 Hgb 15.10 g/dL (11.27-16.99) 11/13/24 04:07 Hct 43.1 % (37-53) 11/13/24 04:07 MCV 87.2 fl (82-101) 11/13/24 04:07 MCH 30.6 pg (27-33) 11/13/24 04:07 MCHC 35.0 g/dL (30-55) 11/13/24 04:07 RDW 12.6 % (12.1-15.1) 11/13/24 04:07 Plt Count 174 10^3/cmm (157-399) 11/13/24 04:07 MPV 9.4 fL (7.4-10.4) 11/13/24 04:07 Neut % (Auto) 62.5 % 11/13/24 04:07 Lymph % (Auto) 23.9 % 11/13/24 04:07 [place] % (Auto) 7.7 % 11/13/24 04:07 Eos % (Auto) 4.7 % 11/13/24 04:07 Baso % (Auto) 0.9 % 11/13/24 04:07 Neut # (Auto) 4.98 10^3/uL (1.8-7.7) 11/13/24 04:07 Lymph # (Auto) 1.9 10^3/uL (0.8-4.8) 11/13/24 04:07 [place] # (Auto) 0.6 10^3/uL (0.2-0.9) 11/13/24 04:07 Eos # (Auto) 0.4 10^3/uL (0.0-0.8) 11/13/24 04:07 Baso # (Auto) 0.1 10^3/uL (0.0-0.1) 11/13/24 04:07 Nucleated RBC % (auto) 0 % 11/13/24 04:07 Nucleated RBCs # 0.0 /100WBC 11/13/24 04:07 PT 13.00 SECONDS (12.1-14.9) 11/11/24 18:57 INR 0.91 (0.8-1.2) 11/11/24 18:57 Sodium 140 mmol/L (136-145) 11/13/24 04:07 Potassium 4.2 mmol/L (3.5-5.1) 11/13/24 04:07 Chloride 105 mmol/L (98-107) 11/13/24 04:07 Carbon Dioxide 24 mmol/L (22-29) 11/13/24 04:07 Anion Gap 15.2 (5-19) 11/13/24 04:07 BUN 16 mg/dL (8-23) 11/13/24 04:07 Creatinine 0.9 mg/dL (0.7-1.2) 11/13/24 04:07 GFR Calculation 84.4 mL/min (90-130) L 11/13/24 04:07 Glucose 92 mg/dL (65-115) 11/13/24 04:07 Calculated Osmolality 291 mOsm/kg (285-295) 11/13/24 04:07 Calcium 8.7 mg/dL (8.5-10.5) 11/13/24 04:07 Phosphorus 2.7 mg/dL (2.5-4.5) 11/12/24 00:35 Magnesium 2.0 mg/dL (1.7-2.3) 11/13/24 04:07 Total Bilirubin 0.4 mg/dL (0.15-1.2) 11/13/24 04:07 AST 26 U/L (0-40) 11/13/24 04:07 ALT 28 U/L (0-41) 11/13/24 04:07 Alkaline Phosphatase 70 U/L (40-130) 11/13/24 04:07 Troponin T Baseline 258 ng/L (0-15) H* 11/11/24 18:57 Troponin T 120 Minute 317.1 ng/L (0-15) H 11/11/24 20:40 Delta Troponin T 59.1 ABS# (0-10) H* 11/11/24 20:40 Troponin T Hi Sens 6Hr 458.7 ng/L (0-15) H 11/12/24 00:35 Troponin T Hi Sens 6Hr Delta 200.7 ng/L (0-12) H* 11/12/24 00:35 Total Protein 5.7 g/dL (6.6-8.7) L 11/13/24 04:07 Albumin 3.7 g/dL (3.5-5.2) 11/13/24 04:07 Globulin 2.0 g/dL (1.3-4.6) 11/13/24 04:07 Triglycerides 179 mg/dL (0-150) H 11/13/24 04:07 Cholesterol 143 mg/dL (0-200) 11/13/24 04:07 LDL Cholesterol, Calc 70 mg/dL (50-129) 11/13/24 04:07 HDL Cholesterol 37 mg/dL (60-100) L 11/13/24 04:07 LDL/HDL Ratio 1.89 RATIO (0.00-3.22) 11/13/24 04:07 Cholesterol/HDL Ratio 3.86 mg/dL (1.0-5.00) 11/13/24 04:07 Lipase 46 U/L (13-60) 11/11/24 18:57 Vitals Last Vital Signs Temp 97.7 F 11/13/24 07:47 Pulse 62 11/13/24 07:47 Resp 18 11/13/24 07:47 BP 127/85 11/13/24 07:47 Pulse Ox 94 11/13/24 07:47 O2 Del Method Room Air 11/13/24 07:47 Discharge Plan Discharge Patient Disposition: Home Condition: Stable Prescriptions: New aspirin 81 mg Tablet,Delayed Release (Dr/Ec) 81 mg PO DAILY Qty: 30 0RF clopidogrel 75 mg Tablet 75 mg PO DAILY Qty: 30 0RF pantoprazole 40 mg Tablet,Delayed Release (Dr/Ec) 40 mg PO DAILY Qty: 30 0RF metoprolol tartrate 25 mg tablet 12.5 mg PO BID Qty: 60 0RF Continued cyclobenzaprine 5 mg tablet 5 mg PO TID PRN (Reason: muscle spasm) Qty: 90 0RF tramadol 50 mg tablet 50 mg PO TID PRN (Reason: Pain) multivitamin Tablet 1 tab PO DAILY acetaminophen 650 mg Tablet Extended Release 650 mg PO Q12H Changed losartan 50 mg tablet 25 mg PO DAILY Qty: 30 0RF ezetimibe 10 mg tablet 10 mg PO DAILY Qty: 30 0RF Discontinued amlodipine 5 mg tablet 5 mg PO DAILY Discharge Orders: Discharge Order (Routine); Ordered 11/13/24 Ordered By: Clementina David Other Ambulatory Orders: Basic Metabolic Panel (Routine) Timeframe: 3 Days Facility: [facility] - Location: Lab - Main Lab Ordered By: Clementina David Referrals: Milly Don NP [Nurse Practitioner, Cardiology] - 11/24/24 2:00 pm Kiana Miller FNP [Primary Care Provider] - 11/20/24 11:20 am Discharge Diet: Cardiac Discharge Activity: Limit activity as instructed Patient Instructions: Metoprolol (By mouth), Aspirin (By mouth), Clopidogrel (By mouth), Pantoprazole (By mouth), Heart Attack (DC), Low-Sodium Diet (DC), Hypertension (DC), Chest Pain Stoplight, Opioid Safety, Post Angiogram Home Care Instructions Discharge Attestations Time Spent in Discharge Care*: less than 30 min Quality Metrics Clinical Quality Measures [ No reported AMI, CVA or VTE this stay] Coding Level of Care Code Acute Code for Chg Fwd Diagnoses Non-ST elevated myocardial infarction I21.4 Accelerated hypertension I10 Atherosclerosis of [place] coronary artery of [place] heart with unstable angina pectoris I25.110 [place] vs. transplanted heart: [place] heart Mixed hyperlipidemia E78.2 Hyperlipidemia type: mixed hyperlipidemia
[2024-11-13 11:51] VITALS: BP 156/97; PULSE 74; RESP 18; TEMP 36.5; O2SAT 96
[2024-11-13 12:12] VITALS: BP 156/97; PULSE 76; RESP 18; O2SAT 99
--- NOTE | 2024-11-13 13:27 | PC.NURSE ---
discharge instructions given and explained.pt and spouse verb understanding of instructions.discharged via w/c to exit at this time.spouse to drive pt home.
== END 2024-11-13 13:28 | disposition home or self-care (01) | DRG 322 ==
LOC: ER 20:38 → CSU 23:03
PROVIDERS: Emergency Medicine; Internal Medicine Cardiovascular Disease; Admitting Provider Internal Medicine; Emergency Provider Emergency Medicine; PCP Nurse Practitioner Family; Visit Provider Internal Medicine
PROC: 027035Z Dilation of Coronary Artery, One Artery with Two Drug-eluting Intraluminal Devices, Percutaneous Approach (ICD-10-PCS; principal; 2024-11-12 11:00)
PROC: 027035Z Dilation of Coronary Artery, One Artery with Two Drug-eluting Intraluminal Devices, Percutaneous Approach (ICD-10-PCS; 2024-11-12 11:00)
DX: I21.4 Non-ST elevation (NSTEMI) myocardial infarction (principal); I10 Essential (primary) hypertension; I25.10 Atherosclerotic heart disease of native coronary artery without angina pectoris; Z95.5 Presence of coronary angioplasty implant and graft; E78.2 Mixed hyperlipidemia; Z79.891 Long term (current) use of opiate analgesic; Z79.82 Long term (current) use of aspirin; Z79.02 Long term (current) use of antithrombotics/antiplatelets; Z82.49 Family history of ischemic heart disease and other diseases of the circulatory system
CPT/HCPCS: 36415; 71045; 80053; 80061; 83690; 83735; 84100; 84484; 85025; 85347; 85610; 93005; 93306; 93458; 96372; 96374; 96376; 99152; 99153; 99285; C1725; C1769; C1874; C1887; C1894; C9600; J1200; J1644; J1650; J2250; J2405; J3010; J3490; J7030; J9999; Q9967

== ENCOUNTER → 2024-11-24 13:47 | Outpatient (BNVA) | payer MEDICARE, SELFPAY | PROVIDERS: PCP Nurse Practitioner Family; Visit Provider Nurse Practitioner Family | DX: I25.10 Atherosclerotic heart disease of native coronary artery without angina pectoris (principal); Z09 Encounter for follow-up examination after completed treatment for conditions other than malignant neoplasm; E78.2 Mixed hyperlipidemia; I10 Essential (primary) hypertension; Z79.02 Long term (current) use of antithrombotics/antiplatelets; Z79.82 Long term (current) use of aspirin; Z95.5 Presence of coronary angioplasty implant and graft; Z87.891 Personal history of nicotine dependence; I25.2 Old myocardial infarction | CPT/HCPCS: 36415; 80053; 85025; 99213 ==

== ENCOUNTER → 2024-12-28 10:50 | Outpatient (BNVA) | payer MEDICARE, SELFPAY | PROVIDERS: PCP Nurse Practitioner Family; Visit Provider Internal Medicine Cardiovascular Disease | DX: I25.2 Old myocardial infarction (principal); I10 Essential (primary) hypertension; E78.5 Hyperlipidemia, unspecified; Z79.02 Long term (current) use of antithrombotics/antiplatelets; Z79.82 Long term (current) use of aspirin; Z98.61 Coronary angioplasty status; Z87.891 Personal history of nicotine dependence | CPT/HCPCS: 99214 ==